=== PATIENT | female | born 1990 | race Caucasian/White ===

== ENCOUNTER 2020-03-06 14:50 | Emergency (ER) | payer OTHER, SELFPAY ==
[2020-03-06 15:01] VITALS: BP 147/93; PULSE 91; RESP 16; TEMP 36.7; O2SAT 100; BMI 42.3
--- NOTE | 2020-03-06 15:21 | ED.FEMALEGU ---
HPI - Female Genitourinary General Chief complaint: Urogenital-Female Stated complaint: UTI? Time Seen by Provider: 03/06/20 15:10 Source: patient Mode of arrival: ambulatory Limitations: no limitations History of Present Illness HPI Narrative: For the last week the patient has had intermittent bladder spasms. Last evening she started to feel well and had a low-grade fever with a max temp of 101 degrees before bed. This morning when she woke up she noticed foul-smelling urine, urinary urgency and some discomfort. No vaginal discharge, back pain, abdominal pain, vomiting. MD elicited complaint: UTI Location of symptoms: urethra Severity: mild Female Urogenital Radiation: Non-Radiating Quality of pain: burning Consistency: other (with urinating ) Vaginal discharge: none Vaginal bleeding: none Urinary symptoms: Urgency and Foul Smelling Urine Exacerbating factors: urination Associated symptoms: denies other symptoms Treatment prior to arrival: none Sexual activity: Yes Patient : No Related Data Previous Rx's Medication Instructions Recorded nitrofurantoin monohyd/m-cryst 100 mg PO Q12H 5 Days #10 cap 03/06/20 [Macrobid] phenazopyridine [Pyridium] 200 mg PO TID PRN #20 tab 03/06/20 Allergies Allergy/AdvReac Type Severity Reaction Status Date / Time No Known Allergies Allergy Unverified 01/28/20 17:48 Review of Systems Review of Systems: Yes all other systems are reviewed and are negative Constitutional: Constitutional: Reports no additional constitutional complaints, Denies body ache(s), Denies chills, Denies fever(s), Denies headache(s) and Denies weakness Eyes: Eyes: Reports no additional eye complaints and Denies change in vision ENT: Reports system reviewed and no additional complaints, except as documented, Denies dizziness, Denies headache(s), Denies nasal congestion, Denies nasal discharge and Denies neck pain Cardiovascular: Cardiovascular: Reports no additional cardiovascular complaints, Denies chest pain, Denies leg edema and Denies dyspnea Respiratory: Respiratory: Reports no additional respiratory complaints, Denies cough and Denies dyspnea Gastrointestinal: Gastrointestinal: Reports no additional gastrointestinal complaints, Denies abdominal pain, Denies diarrhea, Denies nausea and Denies vomiting Genitourinary: Genitourinary: Reports no additional female genitourinary complaints, Denies urinary frequency, Denies difficulty voiding, Denies post void dribbling, Denies dysuria, Denies pelvic pain, Denies flank pain, Denies urinary incontinence, Reports urinary urgency and Denies vaginal discharge Musculoskeletal: Musculoskeletal: Reports no additional musculoskeletal complaints, Denies back pain, Denies arthralgias, Denies joint swelling, Denies neck pain, Denies numbness and Denies tingling Integumentary/Breasts: Skin/Breast: Reports system reviewed and no additional complaints, except as docu and Denies rash Neurologic: Reports system reviewed and no additional complaints, except as documented, Denies Abnormal speech present, Denies dizziness, Denies headache(s), Denies numbness, Denies tingling and Denies weakness PMFSH Past Medical History Attestation statement: The following information was validated with the patient. Source: old records reviewed, obtained from family and nursing notes reviewed Medical History No known health problems Social History Social History Alcohol intake: never Smoked in Last 30 Days: No Use of substances other than those prescribed or required for medical reasons: No Advance Directives: No Advance Directives Information Provided: Yes Physical Exam Vital Signs: Vital Signs: Vital Signs Temp Pulse Resp BP Pulse Ox 03/06/20 15:01 98.1 F 91 16 147/93 H 100 Body Mass Index 42.3 Const: General: cooperative, healthy appearing, comfortable and no acute distress Orientation/consciousness: patient oriented x3 Limitations: no limitations HENMT: Head: Yes normal to inspection Ears: hearing grossly normal bilaterally General nose exam: Normal external nose present Face and sinus: Yes normal facial exam Mouth: Normal oral and palatal mucosa present Throat: Yes posterior oropharynx normal Eyes: General: appearance normal, both eyes and all related structures Pupils: Equal, round and reactive pupils present Neck: Neck: Yes normal visual inspection Chest: Chest palpation & inspection: normal inspection of the chest Resp: Effort & Inspection: normal respiratory effort Auscultation: clear to auscultation bilaterally Cardio: Rate: regular rate Rhythm: regular rhythm Peripheral pulses: Peripheral pulses 2+ throughout GI: Inspection: Yes normal to inspection Palpation (GI): Soft to palpation and nontender Auscultation: normal bowel sounds : General: Yes no CVA tenderness Back/Spine/Pelvis: Back: no CVA tenderness Thoracic/Lumbar Spine: thoracic and lumbar spine normal to inspection Skin: General skin exam: no rashes or lesions noted Neuro: General: patient oriented x3, no focal motor deficits and normal sensation to monofilament Cranial nerves: Yes Equal, round and reactive pupils present Cognition (Neuro): normal cognition Speech: No Abnormal speech present Gait exam (Neuro): Normal gait present Motor exam (neuro): 5/5 motor strength present throughout Extrem: General: Yes normal to inspection Course Course Course Narrative: UTI symptoms with no AP/flank pain or systemic s/s infection. Will treat with oral antibiotics, symptomatic relief. Reviewed worrisome signs and symptoms and when to return to the emergency department. Comfortable discharge home. MDM - Female Genitourinary Lab Data Labs: Lab Results 03/06/20 Range/Units 15:21 Urine Color YELLOW Urine Appearance CLEAR Urine pH 6.0 (5.0-8.0) Ur Specific [place] >= 1.030 H (1.005-1.025) Urine Protein NEG (NEG-TRACE) MG/DL Urine Glucose (UA) NEG (NEG) MG/DL Urine Ketones NEG (NEG) MG/DL Urine Blood 1+ H (NEG) Urine Nitrite NEG (NEG) Ur Leukocyte Esterase 1+ H (NEG) Urine RBC 1-4 (0) /HPF Urine WBC 30-49 H (0-4) /HPF Ur Squamous Epith Cells 3+ /LPF Urine Bacteria 2+ /LPF Urine Test NEGATIVE (NEGATIVE) Discharge Plan Discharge Clinical Impression: Urinary tract infection Qualifiers: Urinary tract infection type: acute cystitis Hematuria presence: without hematuria Qualified Code(s): N30.00 - Acute cystitis without hematuria Patient Disposition: Home, Self-Care Instructions: Urinary Tract Infection in Women (ED) Prescriptions: New nitrofurantoin monohyd/m-cryst [Macrobid] 100 mg capsule 100 mg PO Q12H 5 Days Qty: 10 RF: 0 phenazopyridine [Pyridium] 100 mg tablet 200 mg PO TID PRN (Reason: pain) Qty: 20 RF: 0 Referrals: Inés Norwood MD [Primary Care Provider] - 2 days Stand Alone Forms: Work/School Release Interventions: ED Discharge Assessment Last Done: 03/06/20 15:58 Discharge Date/Time: 03/06/20 16:02
[2020-03-06 15:29] LABS: Glucose Urine UA NEG (NEG); Leukocyte Esterase Urine 1+ (NEG); Nitrite Urine NEG (NEG); Specific Gravity - Urine >= 1.030 (1.005-1.025); Urine Blood 1+ (NEG); Urine Ketones NEG (NEG); Urine Protein NEG (NEG-TRACE)
[2020-03-06 15:31] LABS: Appearance Urine CLEAR; Color Urine YELLOW
[2020-03-06 15:33] LABS: UPreg QC Valid YES; Urine Pregnancy NEGATIVE (NEGATIVE)
[2020-03-06 15:42] LABS: Bacteria Urine 2+ /LPF; Squamous Epithelial Cell Urine 3+ /LPF; WBC Urine 30-49 /HPF (0-4)
== END 2020-03-06 16:02 | disposition home or self-care (01) ==
PROVIDERS: Nurse Practitioner Family; Emergency Provider Emergency Medicine; PCP Internal Medicine
DX: N30.00 Acute cystitis without hematuria (principal); R50.9 Fever, unspecified; Z79.899 Other long term (current) drug therapy
CPT/HCPCS: 81001; 81025; 87086; 99283; 99284

== ENCOUNTER 2020-03-09 19:22 | Emergency (ER) | payer OTHER, SELFPAY ==
[2020-03-09 19:23] VITALS: BP 172/92; PULSE 123; RESP 24; TEMP 37.6; O2SAT 100; BMI 42.3
--- NOTE | 2020-03-09 20:17 | ED.FEMALEGU ---
HPI - Female Genitourinary General Chief complaint: Urogenital-Female Stated complaint: flank pain Time Seen by Provider: 03/09/20 20:02 Source: patient Mode of arrival: ambulatory Limitations: no limitations History of Present Illness HPI Narrative: 29yoF c No Sig PMHx who is currently being treated for a UTI since 03/06/2020 was seen here and placed on Macrobid had persistent pain no symptomatic relief therefore followed up with her primary care provider and ended up seen a nurse practitioner that was on that day and she reports she did not take a urine just changed her antibiotics to Cipro and she has already taken 3 doses and no symptomatic relief and she developed a fever prior to arrival. Reports suprapubic abdominal pain, dysuria, right mid to lower back pain. Reports she had an odor on Saturday although has not had that water since. Denies any other additional complaints or concerns at this time. Related Data Home Medications Medication Instructions Recorded Confirmed buprenorphine 8 mg-naloxone 2 mg film SUBLINGUAL 03/08/20 sublingual film flu vacc [id number] 6mos up(PF) ml IM 03/08/20 methylphenidate HCl 20 mg tablet 20 mg PO TID 03/08/20 Previous Rx's Medication Instructions Recorded nitrofurantoin monohyd/m-cryst 100 mg PO Q12H 5 Days #10 cap 03/06/20 [Macrobid] phenazopyridine [Pyridium] 200 mg PO TID PRN #20 tab 03/06/20 ciprofloxacin HCl 500 mg tablet 500 mg PO BID 7 Days #14 tab 03/08/20 cyclobenzaprine 10 mg PO TID PRN #10 tab 03/10/20 naproxen 500 mg PO BID PRN #10 tab 03/10/20 Allergies Allergy/AdvReac Type Severity Reaction Status Date / Time No Known Allergies Allergy Unverified 01/28/20 17:48 Review of Systems Review of Systems: Constitutional : + Fever, No Chills Cardiovascular : No Chest Pain, No SOB Respiratory : No Cough, No Sputum Gastrointestinal : No Nausea, No Vomiting, No Diarrhea, + abdominal Pain, No Hematochezia, No Melena Genitourinary : no irregular bleeding, + Dysuria, No Urinary Frequency, No Hematuria, No Urinary Incontinence, No Urgency, No Flank Pain, No Urinary Flow Changes, No Hesitancy Musculoskeletal : No joint pain, No Myalgias, No Joint Swelling Skin : No Skin Lesions, No rash Neuro : No Weakness, No Headache Heme/Lymph: No Lymphadenopathy Yes all other systems are reviewed and are negative [facility] Past Medical History Attestation statement: The following information was validated with the patient. Medical History No known health problems Social History Social History Alcohol intake: never Advance Directives: No Advance Directives Information Provided: Yes Physical Exam Vital Signs: Vital Signs: Vital Signs Temp Pulse Resp BP Pulse Ox 03/09/20 20:46 98.1 F 102 H 18 123/82 100 03/09/20 19:23 99.6 F 123 H 24 H 172/92 H 100 Body Mass Index 42.3 vital signs have been reviewed as normal and appeared to be correct. Blood pressure normal. Heart rate normal. Respiration rate normal. Temperature normal. Oxygen saturation normal. Appearance: Alert. Oriented X3. No acute distress. Head: Normal external exam. Normocephalic. Atraumatic. No Brock signs noted. No raccoon eyes noted Eyes: PERRLA. EOMI. Conjunctiva and sclera normal. Eyelids normal. ENT: EAC normal. TM's Normal. Pharynx normal. Uvula midline. Moist mucous membranes. No trismus noted. No drooling noted. No muffled voice noted. Neck: Normal inspection. Neck supple. FROM. No adenopathy. Thyroid Normal. No meningeal signs. No neck mass noted. CVS: Normal heart rate and rhythm. Heart sound normal. No murmurs noted. Pulses normal throughout. Respiratory: No respiratory distress. Painless inspiration. Breath sounds normal. No wheezes/rales/rhonchi noted. Chest nontender. No accessory muscle usage noted or decreased air movement noted. Abdomen: Soft and nontender. Bowel sounds normal in all 4 quadrants. No distention noted. No organomegaly noted. No visible injury noted. Back: +RCVA tenderness. No Left CVA tenderness. Full range of motion noted. Skin: Skin warm and dry. Normal skin color. Normal skin turgor. No rashes/lesions/lacerations noted. Extremities: No lower extremity edema. Extremities exhibit normal range of motion. Extremities nontender. Neuro: Oriented X 3. No motor deficit. No sensory deficit. Reflexes normal. Course Course Course Narrative: 20:05PM - 29yoF c No Sig PMHx who is currently being treated for a UTI since 03/06/2020 was seen here and placed on Macrobid had persistent pain no symptomatic relief therefore followed up with her primary care provider and ended up seen a nurse practitioner that was on that day and she reports she did not take a urine just changed her antibiotics to Cipro and she has already taken 3 doses and no symptomatic relief and she developed a fever prior to arrival. Reports suprapubic abdominal pain, dysuria, right mid to lower back pain. Reports she had an odor on Saturday although has not had that water since. Denies any other additional complaints or concerns at this time. - Concern for Pyelonephritis/Sepsis - Plan: Labs including lactic acid and blood cultures, CT scan of abd/pelvis c IV contrast. Provide IV fluids, 975 mg of Tylenol, 30 mg of Toradol, 750 mg of Levaquin for possible UTI/pyelo/sepsis. Then re-evaluate. Reevaluation(s) Reevaluation #1: Patient's labs were just drawn. Therefore still pending at this time. UA negative for any signs of UTI and UHCG negative. Will re-evaluate. Time: 22:01 Reevaluation #2: [place] [id number]. Still awaiting the patient's basic metabolic panel, magnesium and liver panel. Lactic acid 1.0. I reordered the liver panel, magnesium and basic metabolic panel. Once that is resulted patient can go to CT scan. Will re-evaluate. Time: 22:41 Reevaluation #3: Patient's basic metabolic panel, magnesium and liver panel returned at this time and all within normal limits. Now waiting CT scan of abdomen and pelvis with IV contrast. Will re-evaluate. Time: 01:08 Additional Reevaluation(s): CT scan abdomen and pelvis within normal limits no acute processes noted. Will DC home with symptomatic treatment along with instructions to return if any new or worsening symptoms to follow-up with primary care provider. Patient understands agrees the plan. MDM - Female Genitourinary Lab Data Result diagrams: 03/09/20 21:49 03/10/20 00:12 Labs: Lab Results 03/09/20 03/09/20 03/09/20 Range/Units 20:50 21:49 21:49 WBC 14.1 H (4.8-10.8) X10*3/uL RBC 4.54 (4.20-5.50) X10*6/uL Hgb 12.7 (12.0-16.0) g/dl Hct 38.0 (37-47) % MCV 83.7 (80-98) fL MCH 28.0 (27.0-33.0) pg MCHC 33.4 (31.0-35.0) g/dl RDW 12.2 (11.0-16.0) % Plt Count 290 (160-400) X10*3/uL MPV 8.5 L (9.4-12.3) fL Immature Gran % (Auto) 0.3 (0.0-0.4) % Neut % (Auto) 84.2 H (45-73) % Lymph % (Auto) 10.6 L (20-40) % [place] % (Auto) 3.8 (2-11) % Eos % (Auto) 0.8 (0-4) % Baso % (Auto) 0.3 (0-2) % Lymph # (Auto) 1.5 (1.2-4.9) X10*3/uL [place] # (Auto) 0.5 (0.1-1.2) X10*3/uL Eos # (Auto) 0.1 (0.0-0.4) X10*3/uL Baso # (Auto) 0.0 (0.0-0.2) X10*3/uL Abs Immat Gran (auto) 0.04 H (0.00-0.03) X10*3/uL Absolute Neuts (auto) 11.9 H (2.0-8.3) X10*3/uL Absolute Nucleated RBC 0.000 (0.0-0.012) X10*3/uL Nucleated RBC % (auto) 0.0 (0.0-0.2) /100WBC PT 13.4 H (10.8-13.0) SEC INR 1.1 (0.9-1.1) Sodium Potassium Chloride Carbon Dioxide Anion Gap BUN Creatinine Estim Creat Clear Calc Estimated GFR Random Glucose Lactic Acid (0.5-2.0) mmol/L Calcium Magnesium Total Bilirubin Direct Bilirubin AST ALT Alkaline Phosphatase Total Protein Albumin Urine Color STRAW Urine Appearance CLEAR Urine pH 5.5 (5.0-8.0) Ur Specific [place] <= 1.005 (1.005-1.025) Urine Protein NEG (NEG-TRACE) MG/DL Urine Glucose (UA) NEG (NEG) MG/DL Urine Ketones NEG (NEG) MG/DL Urine Blood NEG (NEG) Urine Nitrite NEG (NEG) Ur Leukocyte Esterase NEG (NEG) Urine Test NEGATIVE (NEGATIVE) 03/09/20 03/09/20 03/10/20 Range/Units 21:49 21:49 00:12 WBC (4.8-10.8) X10*3/uL RBC (4.20-5.50) X10*6/uL Hgb (12.0-16.0) g/dl Hct (37-47) % MCV (80-98) fL MCH (27.0-33.0) pg MCHC (31.0-35.0) g/dl RDW (11.0-16.0) % Plt Count (160-400) X10*3/uL MPV (9.4-12.3) fL Immature Gran % (Auto) (0.0-0.4) % Neut % (Auto) (45-73) % Lymph % (Auto) (20-40) % [place] % (Auto) (2-11) % Eos % (Auto) (0-4) % Baso % (Auto) (0-2) % Lymph # (Auto) (1.2-4.9) X10*3/uL [place] # (Auto) (0.1-1.2) X10*3/uL Eos # (Auto) (0.0-0.4) X10*3/uL Baso # (Auto) (0.0-0.2) X10*3/uL Abs Immat Gran (auto) (0.00-0.03) X10*3/uL Absolute Neuts (auto) (2.0-8.3) X10*3/uL Absolute Nucleated RBC (0.0-0.012) X10*3/uL Nucleated RBC % (auto) (0.0-0.2) /100WBC PT (10.8-13.0) SEC INR (0.9-1.1) Sodium Cancelled 138 Potassium Cancelled 4.0 Chloride Cancelled 108 Carbon Dioxide Cancelled 21 L Anion Gap Cancelled 13 BUN Cancelled 13 Creatinine Cancelled 0.69 Estim Creat Clear Calc Cancelled 160.2 Estimated GFR Cancelled > 60 Random Glucose Cancelled 94 Lactic Acid 1.0 (0.5-2.0) mmol/L Calcium Cancelled 8.2 L Magnesium Cancelled 2.3 Total Bilirubin Cancelled Direct Bilirubin Cancelled AST Cancelled ALT Cancelled Alkaline Phosphatase Cancelled Total Protein Cancelled Albumin Cancelled Urine Color Urine Appearance Urine pH (5.0-8.0) Ur Specific [place] (1.005-1.025) Urine Protein (NEG-TRACE) MG/DL Urine Glucose (UA) (NEG) MG/DL Urine Ketones (NEG) MG/DL Urine Blood (NEG) Urine Nitrite (NEG) Ur Leukocyte Esterase (NEG) Urine Test (NEGATIVE) 03/10/20 Range/Units 00:12 WBC (4.8-10.8) X10*3/uL RBC (4.20-5.50) X10*6/uL Hgb (12.0-16.0) g/dl Hct (37-47) % MCV (80-98) fL MCH (27.0-33.0) pg MCHC (31.0-35.0) g/dl RDW (11.0-16.0) % Plt Count (160-400) X10*3/uL MPV (9.4-12.3) fL Immature Gran % (Auto) (0.0-0.4) % Neut % (Auto) (45-73) % Lymph % (Auto) (20-40) % [place] % (Auto) (2-11) % Eos % (Auto) (0-4) % Baso % (Auto) (0-2) % Lymph # (Auto) (1.2-4.9) X10*3/uL [place] # (Auto) (0.1-1.2) X10*3/uL Eos # (Auto) (0.0-0.4) X10*3/uL Baso # (Auto) (0.0-0.2) X10*3/uL Abs Immat Gran (auto) (0.00-0.03) X10*3/uL Absolute Neuts (auto) (2.0-8.3) X10*3/uL Absolute Nucleated RBC (0.0-0.012) X10*3/uL Nucleated RBC % (auto) (0.0-0.2) /100WBC PT (10.8-13.0) SEC INR (0.9-1.1) Sodium 138 Potassium 4.0 Chloride 108 Carbon Dioxide 22 Anion Gap 12 BUN 13 Creatinine 0.69 Estim Creat Clear Calc 160.2 Estimated GFR > 60 Random Glucose 93 Lactic Acid (0.5-2.0) mmol/L Calcium 8.3 L Magnesium 2.2 Total Bilirubin 0.6 Direct Bilirubin < 0.2 AST 14 ALT 13 Alkaline Phosphatase 53 Total Protein 7.0 Albumin 4.1 Urine Color Urine Appearance Urine pH (5.0-8.0) Ur Specific [place] (1.005-1.025) Urine Protein (NEG-TRACE) MG/DL Urine Glucose (UA) (NEG) MG/DL Urine Ketones (NEG) MG/DL Urine Blood (NEG) Urine Nitrite (NEG) Ur Leukocyte Esterase (NEG) Urine Test (NEGATIVE) Discharge Plan Discharge Clinical Impression: Back pain Qualifiers: Back pain location: low back pain Chronicity: acute Back pain laterality: right Sciatica presence: without sciatica Qualified Code(s): M54.5 - Low back pain Patient Disposition: Home, Self-Care Instructions: Back Pain (ED) Prescriptions: New cyclobenzaprine 10 mg tablet 10 mg PO TID PRN (Reason: muscle spasm) Qty: 10 RF: 0 naproxen 500 mg tablet 500 mg PO BID PRN (Reason: pain) Qty: 10 RF: 0 No Action nitrofurantoin monohyd/m-cryst [Macrobid] 100 mg capsule 100 mg PO Q12H 5 Days Qty: 10 RF: 0 phenazopyridine [Pyridium] 100 mg tablet 200 mg PO TID PRN (Reason: pain) Qty: 20 RF: 0 buprenorphine-naloxone 8-2 mg film sublingual RF: 0 methylphenidate HCl 20 mg tablet 20 mg PO TID RF: 0 Fluzone Quad (PF) 60 mcg (15 mcg x 4)/0.5 mL syringe IM RF: 0 ciprofloxacin HCl 500 mg tablet 500 mg PO BID 7 Days Qty: 14 RF: 0 Referrals: Inés Norwood MD [Primary Care Provider] - 2 days Stand Alone Forms: Work/School Release Print Language: Latvian
[2020-03-09 20:46] VITALS: BP 123/82; PULSE 102; RESP 18; TEMP 36.7; O2SAT 100
[2020-03-09 20:56] LABS: Glucose Urine UA NEG (NEG); Leukocyte Esterase Urine NEG (NEG); Nitrite Urine NEG (NEG); PH 5.5 (5.0-8.0); Specific Gravity - Urine <= 1.005 (1.005-1.025); Urine Blood NEG (NEG); Urine Ketones NEG (NEG); Urine Protein NEG (NEG-TRACE)
[2020-03-09 20:57] LABS: Appearance Urine CLEAR; Color Urine STRAW
[2020-03-09 20:58] LABS: UPreg QC Valid YES; Urine Pregnancy NEGATIVE (NEGATIVE)
--- NOTE | 2020-03-09 21:42 | PC.NURSE ---
PT ALERT AND DENIES ANY COMPLAINTS AT THIS TIME. PT UP TO RESTROOM WITOUT DIFFICULTY. PT SPEAKING TO FAMILY ON PHONE, KEPPRA INFUSED W/O DIFFICULTY. NS INFUSING, SITE INTACT. PT IN NAD AT THIS TIME.
[2020-03-09 21:57] LABS: MANUAL DIFF FLAG NO
[2020-03-09 22:01] LABS: Basophils Percent Auto 0.3 % (0-2); Eosinophils Absolute Auto 0.1 X10*3/uL (0.0-0.4); Eosinophils Percent Auto 0.8 % (0-4); Hemoglobin 12.7 g/dl (12.0-16.0); Imm Gran Abs Auto 0.04 X10*3/uL (0.00-0.03); Imm Gran Pct Auto 0.3 % (0.0-0.4); Lymphocytes Absolute Auto 1.5 X10*3/uL (1.2-4.9); Lymphocytes Percent Auto 10.6 % (20-40); Mean Corpuscular HGB Conc 33.4 g/dl (31.0-35.0); Mean Corpuscular Volume 83.7 fL (80-98); Mean Platelet Volume 8.5 fL (9.4-12.3); Monocytes Absolute Auto 0.5 X10*3/uL (0.1-1.2); Monocytes Percent Auto 3.8 % (2-11); Neutrophils Absolute Auto 11.9 X10*3/uL (2.0-8.3); Neutrophils Percent Auto 84.2 % (45-73); Platelet Count 290 X10*3/uL (160-400); Red Blood Count 4.54 X10*6/uL (4.20-5.50); Red Cell Distribution Width 12.2 % (11.0-16.0); White Blood Count 14.1 X10*3/uL (4.8-10.8)
[2020-03-09] MEDS: 0.9 % Sodium Chloride 1,000 ML 999 ML IVCONT (22:02)
[2020-03-09 22:07] LABS: INTERNATIONAL NORM RATIO 1.1 (0.9-1.1); Prothrombin Time 13.4 SEC (10.8-13.0)
[2020-03-09] MEDS: levoFLOXacin/D5W 750 MG/150 ML PIGGYBACK 100 MG IV (22:16)
[2020-03-10 00:57] LABS: Alanine Aminotransferase 13 U/L (0-31); Albumin Level 4.1 g/dL (3.5-5.0); Alkaline Phosphatase 53 U/L (39-117); Anion Gap 12 (12-20); Aspartate Amino Transferase 14 U/L (5-31); Bilirubin Direct < 0.2 mg/dL (0.0-0.5); Bilirubin Total 0.6 mg/dL (0.0-1.0); Blood Urea Nitrogen 13 mg/dL (9-16); Calcium 8.3 mg/dL (8.4-10.2); Carbon Dioxide 22 mmol/L (22-29); Chloride 108 mmol/L (96-108); Creatinine Clr Calc Pharmacy 160.2; Estimated Glomerular Filt Rate > 60; Glucose Random 93 mg/dL (60-115); Magnesium 2.2 mg/dL (1.6-2.6); Sodium 138 mmol/L (135-145)
[2020-03-10 00:59] LABS: Anion Gap 13 (12-20); Blood Urea Nitrogen 13 mg/dL (9-16); Calcium 8.2 mg/dL (8.4-10.2); Carbon Dioxide 21 mmol/L (22-29); Chloride 108 mmol/L (96-108); Creatinine Clr Calc Pharmacy 160.2; Estimated Glomerular Filt Rate > 60; Glucose Random 94 mg/dL (60-115); Magnesium 2.3 mg/dL (1.6-2.6); Sodium 138 mmol/L (135-145)
--- NOTE | 2020-03-10 01:23 | CT_ITS ---
EXAMINATION: CT ABDOMEN AND PELVIS WITHOUT CONTRAST CLINICAL INFORMATION: Right abdominal pain. Back pain. Question stones. COMPARISON: None TECHNIQUE: Multidetector volumetric imaging was performed from the superior aspect of the liver through the pubic symphysis. Sagittal and coronal reformatted images were obtained on the technologist's workstation. This CT examination was performed using dose optimization techniques as appropriate, variously including the following: *Automated exposure control *Adjustment of mA and/or kV according to patient size (this includes techniques or standardized protocols for targeted exams where dose is matched to indication/reason for exam; i.e. extremities or head) *Use of iterative reconstruction technique DLP: 1106 mGy-cm FINDINGS: LUNG BASES: The visualized lung bases are unremarkable. LIVER, GALLBLADDER, AND BILIARY TREE: The liver is normal in size, shape, and attenuation. No focal hepatic lesion or biliary ductal dilatation is present. The gallbladder is unremarkable with no evidence of radiopaque gallstones, gallbladder wall thickening, or obvious pericholecystic inflammatory changes. PANCREAS: Unremarkable. SPLEEN: Unremarkable. ADRENAL GLANDS: Unremarkable. KIDNEYS AND URETERS: The kidneys are normal in size, shape, and attenuation. No hydronephrosis, hydroureter, or calculi seen. No perinephric stranding. BLADDER: Unremarkable. GASTROINTESTINAL TRACT: The stomach is unremarkable. Normal caliber small bowel. There is no obstruction. No colonic wall thickening or inflammatory change. Normal appendix. ABDOMINAL WALL: No significant hernia is appreciated. LYMPH NODES: Normal. VASCULAR: Unremarkable. PELVIC VISCERA: IUD in place in the uterus. Anteverted uterus. No adnexal mass. OSSEOUS STRUCTURES: No acute or suspicious osseous abnormality. CT/CT abdomen pelvis wo con IMPRESSION: No acute finding of the abdomen or pelvis. No hydronephrosis or nephrolithiasis.
== END 2020-03-10 02:15 | disposition home or self-care (01) ==
PROVIDERS: Physician Assistant Medical; Emergency Provider Internal Medicine; PCP Internal Medicine
DX: R10.9 Unspecified abdominal pain (principal); M54.5 Low back pain; Z79.899 Other long term (current) drug therapy
CPT/HCPCS: 36415; 74176; 80048; 80076; 81003; 81025; 83605; 83735; 85025; 85610; 87040; 96365; 96366; 96375; 99284; J1956

== ENCOUNTER 2020-03-28 10:31 | Outpatient (REF) | payer OTHER, SELFPAY ==
[2020-03-28 15:56] LABS: Influenza A PCR NEGATIVE (Negative); Influenza B PCR NEGATIVE (Negative); Resp Syncy Virus RNA Qual PCR NEGATIVE (Negative); SARS COV2 PCR INHOUSE NEGATIVE (Negative)
== END 2020-03-28 10:32 | disposition home or self-care (01) ==
LOC: HO.LAB 10:31
PROVIDERS: Visit Provider Nurse Practitioner Family
DX: J02.9 Acute pharyngitis, unspecified (principal); Z20.828 Contact with and (suspected) exposure to other viral communicable diseases
CPT/HCPCS: 0241U; 87071; 87880

== ENCOUNTER 2020-03-31 08:55 | Outpatient (REF) | payer OTHER, SELFPAY ==
[2020-03-31 11:21] LABS: MANUAL DIFF FLAG NO
[2020-03-31 11:32] LABS: Basophils Percent Auto 0.4 % (0-2); Eosinophils Absolute Auto 0.2 X10*3/uL (0.0-0.4); Hematocrit 36.4 % (37-47); Imm Gran Abs Auto 0.03 X10*3/uL (0.00-0.03); Imm Gran Pct Auto 0.4 % (0.0-0.4); Lymphocytes Absolute Auto 1.7 X10*3/uL (1.2-4.9); Lymphocytes Percent Auto 21.3 % (20-40); Mean Corpuscular Hemoglobin 27.9 pg (27.0-33.0); Mean Corpuscular Volume 84.7 fL (80-98); Mean Platelet Volume 8.9 fL (9.4-12.3); Monocytes Absolute Auto 0.4 X10*3/uL (0.1-1.2); Monocytes Percent Auto 4.8 % (2-11); Neutrophils Absolute Auto 5.5 X10*3/uL (2.0-8.3); Neutrophils Percent Auto 70.1 % (45-73); Platelet Count 262 X10*3/uL (160-400); Red Cell Distribution Width 12.3 % (11.0-16.0); White Blood Count 7.8 X10*3/uL (4.8-10.8)
[2020-03-31 12:39] LABS: Alanine Aminotransferase 12 U/L (0-31); Alkaline Phosphatase 55 U/L (39-117); Anion Gap 12 (12-20); Aspartate Amino Transferase 12 U/L (5-31); Bilirubin Total 0.4 mg/dL (0.0-1.0); Blood Urea Nitrogen 11 mg/dL (9-16); Carbon Dioxide 28 mmol/L (22-29); Chloride 104 mmol/L (96-108); Estimated Glomerular Filt Rate > 60; Glucose Fasting 87 mg/dL (60-99); Potassium 4.3 mmol/l (3.3-5.1); Sodium 140 mmol/L (135-145)
[2020-03-31 12:40] LABS: TSH reflex Free T4 2.12 mIU/mL (0.32-4.0)
== END 2020-03-31 08:56 | disposition home or self-care (01) ==
LOC: HO.HMGCLDS 08:55
PROVIDERS: PCP Internal Medicine; Visit Provider Nurse Practitioner Family
DX: J02.9 Acute pharyngitis, unspecified (principal); M54.2 Cervicalgia
CPT/HCPCS: 36415; 80053; 84443; 85025

== ENCOUNTER 2020-04-04 11:14 | Outpatient (REF) | payer OTHER, SELFPAY ==
--- NOTE | 2020-04-04 11:20 | US_ITS ---
EXAMINATION: US THYROID CLINICAL INFORMATION: Acute pharyngitis, unspecified. Painful lump posterior neck. COMPARISON: None. TECHNIQUE: Linear transducer olivas-scale and color Doppler examination with attention to the region of the thyroid. FINDINGS: SIZE: Measurements of the thyroid lobes and nodules are given in sagittal, anteroposterior and transverse dimensions respectively. Right Thyroid Lobe: 5.2 x 1.8 x 1.7 cm, volume 8.3 mL. Parenchyma: The gland echotexture is heterogeneous. Thyroid vascularity is increased. Left Thyroid Lobe: 5.0 x 1.8 x 1.6 cm, volume 7.5 mL. Parenchyma: The gland echotexture is heterogeneous. Thyroid vascularity is increased. Isthmus: 0.5 cm in maximum AP dimension. RIGHT THYROID LOBE: No nodules. ISTHMUS: No nodules. LEFT THYROID LOBE: No nodules. NODES: Three lymph nodes seen in anterior right neck. They measure 0.5 x 2.1 x 1.0, 1.6 x 2.1 x 0.6 in the upper neck level 2, and 0.9 x 1.7 x 0.8 cm lower right neck level 4/7. There is a solitary lymph node in anterior left upper neck level 2, measuring 2.3 x 2.9 x 1.1 cm. Painful lumps along the posterior nape of the neck left of midline are lymph nodes. Lymph node measures 1.2 x 0.2 x 0.7 cm and 1.3 x 0.3 x 0.9 cm. US/US thyroid IMPRESSION: Two painful lumps posterior neck left of midline measures or 2 small lymph nodes, as described above. There are small lymph nodes in anterior right and left neck as described above, the largest measuring 2.1 cm level 2 ,right neck and 2.9 cm level 2, left neck. Heterogeneous thyroid gland without any nodules.
== END 2020-04-04 11:15 | disposition home or self-care (01) ==
LOC: HO.HMGCX 11:14
PROVIDERS: PCP Nurse Practitioner Family; Visit Provider Nurse Practitioner Family
DX: M54.2 Cervicalgia (principal); J02.9 Acute pharyngitis, unspecified
CPT/HCPCS: 76536

== ENCOUNTER 2020-04-14 08:50 | Outpatient (REF) | payer OTHER, SELFPAY ==
--- NOTE | 2020-04-14 08:55 | XR_ITS ---
EXAMINATION: XR CERVICAL SPINE CLINICAL INFORMATION: Cervicalgia. COMPARISON: None TECHNIQUE: Frontal, odontoid and lateral views of the cervical spine were obtained. FINDINGS: There are no prevertebral soft tissue or bony abnormalities demonstrated. No compression fractures or subluxations are identified. Alignment is maintained at the atlanto-axial articulation. The disc spaces are preserved. No endplate changes are seen. The prevertebral soft tissues are normal. The foramina are patent. XR/XR cervical spine 3V IMPRESSION: Unremarkable examination.
== END 2020-04-14 08:51 | disposition home or self-care (01) ==
LOC: HO.HMGCX 08:50
PROVIDERS: PCP Internal Medicine; Visit Provider Nurse Practitioner Family
DX: M54.2 Cervicalgia (principal)
CPT/HCPCS: 72040

== ENCOUNTER 2020-09-19 09:19 | Outpatient (REF) | payer OTHER, SELFPAY ==
[2020-09-19 11:24] LABS: MANUAL DIFF FLAG NO
[2020-09-19 11:44] LABS: Basophils Percent Auto 0.4 % (0-2); Eosinophils Absolute Auto 0.3 X10*3/uL (0.0-0.4); Eosinophils Percent Auto 3.5 % (0-4); Hematocrit 37.2 % (37-47); Imm Gran Abs Auto 0.02 X10*3/uL (0.00-0.03); Imm Gran Pct Auto 0.3 % (0.0-0.4); Lymphocytes Absolute Auto 1.8 X10*3/uL (1.2-4.9); Mean Corpuscular HGB Conc 32.3 g/dl (31.0-35.0); Mean Corpuscular Hemoglobin 27.8 pg (27.0-33.0); Mean Corpuscular Volume 86.1 fL (80-98); Mean Platelet Volume 8.7 fL (9.4-12.3); Monocytes Absolute Auto 0.4 X10*3/uL (0.1-1.2); Monocytes Percent Auto 5.1 % (2-11); Neutrophils Percent Auto 66.7 % (45-73); Platelet Count 261 X10*3/uL (160-400); Red Blood Count 4.32 X10*6/uL (4.20-5.50); Red Cell Distribution Width 12.2 % (11.0-16.0); White Blood Count 7.5 X10*3/uL (4.8-10.8)
[2020-09-19 11:56] LABS: Alanine Aminotransferase 14 U/L (0-31); Alkaline Phosphatase 69 U/L (39-117); Anion Gap 11 (12-20); Aspartate Amino Transferase 14 U/L (5-31); Bilirubin Total 0.6 mg/dL (0.0-1.0); Blood Urea Nitrogen 16 mg/dL (9-16); Calcium 9.2 mg/dL (8.4-10.2); Carbon Dioxide 28 mmol/L (22-29); Chloride 105 mmol/L (96-108); Cholesterol 145 mg/dL; Estimated Glomerular Filt Rate > 60; Glucose Fasting 69 mg/dL (60-99); HDL Cholesterol 56 mg/dL; LDL Cholesterol Calculated 80 mg/dl; Potassium 4.3 mmol/L (3.3-5.1); Sodium 140 mmol/L (135-145); Total Protein 6.9 g/dL (6.5-8.0); Triglycerides 49 mg/dL
[2020-09-19 12:20] LABS: TSH reflex Free T4 2.27 uIU/mL (0.32-4.0)
== END 2020-09-19 09:20 | disposition home or self-care (01) ==
LOC: HO.HMGCLDS 09:19
PROVIDERS: PCP Nurse Practitioner Family; Visit Provider Nurse Practitioner Family
DX: Z00.00 Encounter for general adult medical examination without abnormal findings (principal)
CPT/HCPCS: 36415; 80053; 80061; 84443; 85025

== ENCOUNTER 2020-09-26 09:35 | Outpatient (REF) | payer OTHER, SELFPAY ==
[2020-09-27 05:48] LABS: CT PCR NOT DETECTED (Not Detect.); NG PCR NOT DETECTED (Not Detect.)
[2020-09-29 10:16] LABS: HPV mRNA E6/E7 rflx Not Detected (Not Detected)
== END 2020-09-26 09:36 | disposition home or self-care (01) ==
LOC: HO.LAB 09:35
PROVIDERS: Visit Provider Advanced Practice Midwife
DX: Z01.419 Encounter for gynecological examination (general) (routine) without abnormal findings (principal); E66.01 Morbid (severe) obesity due to excess calories; Z80.3 Family history of malignant neoplasm of breast; Z68.41 Body mass index [BMI] 40.0-44.9, adult; Z30.432 Encounter for removal of intrauterine contraceptive device; Z79.899 Other long term (current) drug therapy
CPT/HCPCS: 58301; 87491; 87591; 87624; 88142

== ENCOUNTER → 2020-12-08 09:59 | Outpatient (BNVA) | payer OTHER, SELFPAY | PROVIDERS: Visit Provider Advanced Practice Midwife | DX: Z30.430 Encounter for insertion of intrauterine contraceptive device (principal) | CPT/HCPCS: 58300; 81025; 99212; J7300 ==

== ENCOUNTER 2021-08-27 13:11 | Emergency (ER) | payer OTHER, SELFPAY ==
--- NOTE | ~2021-08-27 | US_ITS ---
EXAMINATION: UNILATERAL TRIPLEX SCANNING OF THE RIGHT UPPER EXTREMITY CLINICAL INFORMATION: Right upper extremity swelling. COMPARISON: None. TECHNIQUE: Color-flow triplex imaging with spectral analysis and compression Doppler were performed on the right upper extremity. FINDINGS: Respiratory variation, normal compression and augmented flow are noted throughout the upper extremity. The visualized internal jugular vein, subclavian vein, axillary vein, basilic vein, brachial vein, median cubital vein and forearm venous segments show no evidence of deep venous thrombosis. The cephalic vein was not identified. No abnormalities identified in the area of lateral upper arm pain and anterior proximal forearm pain localized by the patient. US/US venous duplex UE RT IMPRESSION: Normal triplex scan without evidence of deep venous thrombosis involving the right upper extremity.
[2021-08-27 13:42] VITALS: BP 145/78; PULSE 94; RESP 18; TEMP 36.5; O2SAT 100; BMI 43.0
--- NOTE | 2021-08-27 15:14 | ED.EXTPRO ---
HPI - Extremity Problem General Chief complaint: Extremity Injury, Upper Stated complaint: r arm wrist pain Time Seen by Provider: 08/27/21 14:28 Source: patient Mode of arrival: ambulatory Limitations: no limitations History of Present Illness HPI Narrative: 30-year-old female who presents for right hand bruising, and right forearm and arm pain after lifting heavy objects at work. She woke up this morning with this pain MD Complaint: extremity pain Onset (ago): hour(s) (3) Pain Consistency: constant Location: right and upper extremity Severity scale (1-10): 6 Quality: aching Relieving factors: immobilization Exacerbating factors: range of motion Associated symptoms: denies other symptoms Related Data Home Medications Medication Instructions Recorded Confirmed buprenorphine 8 mg-naloxone 2 mg film SUBLINGUAL 03/08/20 12/08/20 sublingual film flu vacc [id number] 6mos up(PF) ml IM 03/08/20 12/08/20 methylphenidate HCl 20 mg tablet 20 mg PO TID 03/08/20 12/08/20 levonorgestrel 20 mcg/24 hours (7 INTRAUTERINE 09/26/20 12/08/20 yrs) 52 mg intrauterine device (Mirena) Previous Rx's Medication Instructions Recorded sumatriptan succinate 100 mg tablet 100 mg PO Q2-4H PRN #10 tab 06/08/20 omeprazole 20 mg capsule,delayed 20 mg PO DAILY #30 cap 06/21/20 release ibuprofen 600 mg tablet 600 mg PO Q8H PRN #90 tab 07/29/20 [id number] 3.5 4 drp OTIC (EAR) LEFT Q8H 7 Days 07/29/20 mg-10,000 unit/mL-1 % ear #10 ml drops,susp ibuprofen 600 mg tablet 600 mg PO Q6H PRN #90 tab 12/08/20 nitrofurantoin 100 mg PO Q12H 5 Days #10 cap 04/20/21 monohydrate/macrocrystals 100 mg capsule (Macrobid) phenazopyridine 100 mg tablet 100 mg PO TID PRN 2 Days #6 tab 04/20/21 (Pyridium) methocarbamol 750 mg tablet 750 mg PO Q8H 5 Days #15 tab 08/27/21 Allergies Allergy/AdvReac Type Severity Reaction Status Date / Time ciprofloxacin [From Cipro] Allergy Severe tachycardia, Verified 12/08/20 11:09 sob Sulfa (Sulfonamide Allergy rash, hives Verified 12/08/20 11:09 Antibiotics) Review of Systems Constitutional: Constitutional: Denies body ache(s), Denies chills, Denies fatigue, Denies fever(s), Denies headache(s), Denies malaise and Denies weakness Eyes: Eyes: Denies diplopia ENT: Denies vertigo, Denies dizziness, Denies otalgia, Denies headache(s), Denies mouth pain, Denies post nasal drip, Denies sinus pain, Denies sinus pressure, Denies sore throat and Denies throat swelling Cardiovascular: Cardiovascular: Denies chest pain, Denies syncope, Denies leg edema, Denies lightheadedness, Denies Loss of Consciousness, Denies palpitations and Denies dyspnea Respiratory: Respiratory: Denies chest congestion, Denies cough and Denies dyspnea Gastrointestinal: Gastrointestinal: Denies abdominal pain, Denies hematochezia, Denies constipation, Denies diarrhea and Denies vomiting Musculoskeletal: Musculoskeletal: Denies limited range of motion, Denies muscle weakness, Denies numbness, Reports radiating pain into limb and Denies tingling Neurologic: Denies confusion, Denies vertigo, Denies dizziness, Denies syncope, Denies headache(s), Denies numbness, Denies tingling and Denies weakness Psychiatric: Psychiatric: Denies anxiety, Denies confusion and Denies depression Endocrine: Endocrine: Denies fatigue and Denies palpitations Allergic/Immunologic: Allergic/Immunologic: Denies throat swelling PMF Past Medical History Medical History Anxiety Depression with anxiety Heartburn Lymphadenopathy No known health problems Opioid abuse, in remission Tension headache Vulvar dermatitis Surgical History History of foot surgery Family History Family History Father ADHD Bipolar disorder Mother H/O: manic depressive disorder Anxiety Breast cancer Cervical cancer HTN (hypertension) Brother No problems noted. Sister No problems noted. Maternal Grandfather Stomach cancer Colon cancer High cholesterol Stroke Maternal Grandmother No problems noted. Paternal Grandmother Brain cancer Lung cancer Obese Paternal Grandfather No problems noted. Maternal Uncle Skin cancer Brother No problems noted. Sister No problems noted. Daughter No problems noted. Social History Social History (Updated 12/08/20 @ 11:17 by [facility]) Alcohol intake: never Advance Directives: No Advance Directives Information Provided: Yes Patient : No Gender identity: Female Physical Exam Vital Signs: Vital Signs: Last Vital Signs Temp 97.7 F 08/27/21 13:42 Pulse 94 08/27/21 13:42 Resp 18 08/27/21 13:42 BP 145/78 H 08/27/21 13:42 Pulse Ox 100 08/27/21 13:42 BMI result Body Mass Index 43.0 Const: General: No confusion Nutritional Appearance: well nourished Orientation/consciousness: No confusion Limitations: no limitations Eyes: Conjunctivae: conjunctivae normal Pupils: Equal, round and reactive pupils present EOM: EOMs intact bilaterally Neck: Neck: Yes full ROM, Yes no lymphadenopathy and Yes supple Resp: Effort & Inspection: normal respiratory effort and able to speak in complete sentences Auscultation: clear to auscultation bilaterally, no crackles, no rales, no rhonchi and no wheezes Cardio: Rate: regular rate Rhythm: regular rhythm Heart sounds: S1 normal heart sound present and S2 normal heart sound present GI: Inspection: Yes normal to inspection Palpation (GI): Soft to palpation, nontender, no guarding and not rigid Percussion: Yes normal to percussion Auscultation: normal bowel sounds Skin: General skin exam: no rashes or lesions noted Neuro: General: No confusion Cranial nerves: Yes Equal, round and reactive pupils present Extrem: Other: Patient has tenderness with resistance to wrist flexion up into her forearm, patient states pain radiates up into her right shoulder, there is mild swelling right proximal arm. Right upper extremity: full ROM and normal capillary refill; No no cyanosis and no edema Psych: Appearance: grossly normal Affect: normal affect Attitude: cooperative Thought process: Normal thought process present Course Course Course Narrative: 30-year-old female who is anxious that she may have a blood clot in her right arm. Patient has no risk factors, however she does have palpable pain and swelling proximal right arm. Patient has tenderness with resistance to wrist flexion up into her forearm, patient states pain radiates up into her right shoulder, there is mild swelling right proximal arm. Gave Tylenol, ordered ultrasound. Reevaluation(s) Reevaluation #1: US/US venous duplex UE RT IMPRESSION: Normal triplex scan without evidence of deep venous thrombosis involving the right upper extremity. ? Will prescribe muscle relaxants, alternate Tylenol ibuprofen, call primary care provider for physical therapy appointment. Discharge Plan Discharge Clinical Impression: Overuse injury Patient Disposition: Home, Self-Care Additional Instructions: Please call your primary care provider for follow-up from today's emergency room visit, I would like you to have them prescribe you physical therapy. Please take muscle relaxant as prescribed, though should not make you sleepy, but it may help with your arm pain. Please rest the right arm, and alternate Tylenol and ibuprofen as I have described below for pain controlPlease alternate Tylenol and ibuprofen for pain. Take 1 or the other every 4 hours. For example, at midnight take 1000 mg of Tylenol, then at 4:00 a.m. take 800 mg ibuprofen, at 8:00 a.m. take 1000 mg of Tylenol, at noon take 800 mg of ibuprofen, at 4:00 p.m. take 1000 mg of Tylenol, at 8:00 p.m. take 800 mg of ibuprofen. Do not exceed 3000 mg of Tylenol in 24 hours. This method is proven to be as effective as an opioid for pain control. Prescriptions: New methocarbamol 750 mg tablet 750 mg PO Q8H 5 Days Qty: 15 0RF No Action sumatriptan succinate 100 mg tablet 100 mg PO Q2-4H PRN (Reason: migraine headache) Qty: 10 0RF Rx Instructions: do not exceed 2 doses per 24 hrs omeprazole 20 mg capsule,delayed release(DR/EC) 20 mg PO DAILY Qty: 30 1RF ibuprofen 600 mg tablet 600 mg PO Q8H PRN (Reason: pain) Qty: 90 0RF [id number]-[id number]-BB 3.5-10,000-1 mg/mL-unit/mL-% drops,suspension 4 drp otic (ear) left Q8H 7 Days Qty: 10 3RF buprenorphine-naloxone 8-2 mg film sublingual 0RF methylphenidate HCl 20 mg tablet 20 mg PO TID 0RF Fluzone Quad [id number] (PF) 60 mcg (15 mcg x 4)/0.5 mL syringe IM 0RF phenazopyridine [Pyridium] 100 mg tablet 100 mg PO TID PRN (Reason: pain) 2 Days Qty: 6 0RF nitrofurantoin monohyd/m-cryst [Macrobid] 100 mg capsule 100 mg PO Q12H 5 Days Qty: 10 0RF Rx Instructions: must administer with a meal/food Mirena 20 mcg/24 hours (6 yrs) 52 mg intrauterine device intrauterine 0RF ibuprofen 600 mg tablet 600 mg PO Q6H PRN (Reason: pain, moderate) Qty: 90 2RF Rx Instructions: always take w food in stomach Stand Alone Forms: Work/School Release
[2021-08-27] MEDS: Acetaminophen 325 MG TABLET 975 MG PO (17:08)
[2021-08-27 19:09] VITALS: BP 130/77; PULSE 79; RESP 16; TEMP 37; O2SAT 99
== END 2021-08-27 19:15 | disposition home or self-care (01) ==
PROVIDERS: Emergency Provider Emergency Medicine; PCP Nurse Practitioner Family
DX: S49.91XA Unspecified injury of right shoulder and upper arm, initial encounter (principal); M79.601 Pain in right arm; X50.0XXA Overexertion from strenuous movement or load, initial encounter; X50.1XXA Overexertion from prolonged static or awkward postures, initial encounter; Y93.9 Activity, unspecified; Y92.9 Unspecified place or not applicable; Y99.9 Unspecified external cause status
CPT/HCPCS: 93971; 99284

== ENCOUNTER 2022-12-03 20:12 | Emergency (ER) | payer OTHER, SELFPAY ==
[2022-12-03 21:02] VITALS: BP 149/101; PULSE 109; RESP 18; TEMP 36; O2SAT 100; BMI 43.8
--- NOTE | 2022-12-04 00:34 | ED_ITS ---
HPI - Fall General Chief Complaint: Fall Stated Complaint: fell/ hit head Time Seen by Provider: 12/04/22 00:34 Source: patient, RN notes reviewed and old records reviewed Mode of arrival: ambulatory History of Present Illness HPI Narrative: 31-year-old female with past medical history of anxiety, depression, anxiety, presenting to the ED complaining headache, forehead and nasal pain s/p mechanical trip and fall down 1 step with + head strike around 19:00. Patient states she is living in a new house, was caring large jug of water when missed step and fell face 1st into door frame. Denies symptoms prior to fall including CP/SOB, lightheadedness/dizziness, denies LOC or taking anticoagulation. Reports now with residual facial pressure. Denies vision change/loss, neck/back pain, urinary clot/retention, nausea/vomiting, numbness/tingling MD complaint: fall Onset (ago): hour(s) Related Data Home Medications Medication Instructions Recorded Confirmed buprenorphine 8 mg-naloxone 2 mg film sublingual 03/08/20 12/08/20 sublingual film flu vacc [id number] 6mos up(PF) 60 ml IM 03/08/20 12/08/20 mcg(15 mcgx4)/0.5 mL IM syringe levonorgestrel 21 mcg/24 hours (8 intrauterine 09/26/20 12/08/20 yrs) 52 mg intrauterine device (Mirena) copper 380 square mm intrauterine intrauterine 10/28/21 device (ParaGard T [id number]) Previous Rx's Medication Instructions Recorded omeprazole 20 mg capsule,delayed 20 mg PO DAILY #30 caps 06/21/20 release Allergies Allergy/AdvReac Type Severity Reaction Status Date / Time ciprofloxacin [From Cipro] Allergy Severe tachycardia, Verified 12/03/22 21:01 sob Sulfa (Sulfonamide Allergy rash, hives Verified 12/03/22 21:01 Antibiotics) Review of Systems Review of Systems: Constitutional: No Fever, No Chills ENT/Mouth: + facial pain, No Ear Pain, No Nasal Congestion, No sore throat, No Rhinorrhea, No Swallowing Difficulty Cardiovascular: No Chest Pain, No SOB Respiratory: No Cough, No Sputum, No Wheezing Gastrointestinal: No Nausea, No Vomiting, No Diarrhea, No Constipation, No Abdominal pain Genitourinary: No Dysuria, No Urinary Frequency, No Hematuria, No Urinary Incontinence/retention Musculoskeletal: No joint pain, No Myalgias, No Joint Swelling Skin: No Skin Lesions, No rash Neuro: No Weakness, No Numbness, No Paresthesias, + headache, no LOC Yes all other systems are reviewed and are negative Constitutional: Constitutional: Reports as per HPI Neurologic: Denies Abnormal speech present [facility] Past Medical History Attestation statement: The following information was validated with the patient. Source: old records reviewed Medical History Anxiety Depression with anxiety Heartburn Lymphadenopathy No known health problems Opioid abuse, in remission Tension headache Vulvar dermatitis Surgical History History of foot surgery Family History Family History Father ADHD Bipolar disorder Mother H/O: manic depressive disorder Anxiety Breast cancer Cervical cancer HTN (hypertension) Brother No problems noted. Sister No problems noted. Maternal Grandfather Stomach cancer Colon cancer High cholesterol Stroke Maternal Grandmother No problems noted. Paternal Grandmother Brain cancer Lung cancer Obese Paternal Grandfather No problems noted. Maternal Uncle Skin cancer Brother No problems noted. Sister No problems noted. Daughter No problems noted. Social History Social History Alcohol intake: never Smoked in Last 30 Days: No Use of substances other than those prescribed or required for medical reasons: No Advance Directives: No Advance Directives Information Provided: Yes Gender identity: Female Physical Exam Vital Signs: Vital Signs: Last Vital Signs Temp 96.8 F 12/03/22 21:02 Pulse 109 H 12/03/22 21:02 Resp 18 12/03/22 21:02 BP 149/101 H 12/03/22 21:02 Pulse Ox 100 12/03/22 21:02 O2 Del Method Room Air 12/03/22 21:02 BMI result Body Mass Index 43.8 Const: General: cooperative, healthy appearing, no acute distress, alert and awake Orientation/consciousness: patient oriented x3 Limitations: no limitations HEENT: Other: + small left upper forehead abrasion noted. No appreciable hematoma + small superficial nasal bridge abrasion with mild swelling and ecchymosis. No septal deviation. Mildly tender to palpation. No septal hematoma. No orbital step-off. EOMs intact without entrapment Head: Yes normal to inspection, Yes atraumatic, No Brock's sign and No raccoon eyes Ears: hearing grossly normal bilaterally General nose exam: no epistaxis Face and sinus: No crepitus and No edema Throat: Yes posterior oropharynx normal, Yes tonsils normal, Yes uvula midline, No peritonsillar mass and No uvular edema Eyes: General: appearance normal, both eyes and all related structures Pupils: Equal, round and reactive pupils present EOM: EOMs intact bilaterally Neck: Neck: Yes normal visual inspection, Yes no meningeal signs, No anterior neck swelling and No torticollis Resp: Effort & Inspection: normal respiratory effort and no respiratory distress Cardio: Rate: regular rate Heart sounds: S1 normal heart sound present and S2 normal heart sound present GI: Inspection: Yes normal to inspection Back/Spine/Pelvis: Other: No midline cervical/thoracic/lumbar spinous tenderness/step-off or deformity Skin: Rashes: no rashes Wounds: no wounds Neuro: General: patient oriented x3, gait normal, tone normal, moves all extremities, no meningeal signs, no focal motor deficits and CN's II-XI intact bilaterally Cranial nerves: Yes CN's II-XII intact bilaterally, Yes Equal, round and reactive pupils present and Yes Bilaterally intact EOM present Cognition (Neuro): normal cognition Speech: No Abnormal speech present Gait exam (Neuro): Normal gait present Motor exam (neuro): 5/5 motor strength present throughout Extrem: General: Yes normal to inspection Medical Decision Making Medical Decision Making MDM Narrative: 31-year-old female with past medical history of anxiety, depression, anxiety, presenting to the ED complaining headache, forehead and nasal pain s/p mechanical trip and fall down 1 step with + head strike around 19:00. On exam initially hypertensive and tachycardic likely from anxiety, physical exam as noted above. No focal neuro deficits. No septal hematoma or deviation. Concern for concussion vs nasal fracture. No evidence of orbital blowout fracture. Unlikely ICH/SAH. [place] Head CT Rule negative Plan: Encourage Tylenol/ibuprofen, reassurance Offered head CT although discussed with patient not needed at this time due to clinical judgment rules, and probability of nasal bone fracture although imaging not needed, patient is agreeable to refrain from imaging at this time Results discussed with patient including worrisome signs and symptoms and strict return precautions, and when to return to the emergency department. They verbalized understanding and feel safe for discharge at this time. Differential Diagnosis Differential Diagnoses: The differential diagnosis associated with the presentation includes As above Admission/Observation Consideration of admission/observation: Escalation of care including admission/observation considered Lab Data MDM Lab Attestation statement: I reviewed the patient's lab results. Radiology Impression Discussion of test interpretation with radiology: I have reviewed the radiologist's reading. External Record Review External record reviewed: Inpatient record, Office record, Outpatient record, Prior outpatient labs, Prior outpatient radiology, Primary care record and Outside ED record Tests considered The following testing was considered but not selected: As above Prescription Management I considered prescription management with: Pain Medication Discharge Plan Discharge Clinical Impression: Facial injury, Fall Patient Disposition: Home, Self-Care Instructions: Facial Contusion (ED) Additional Instructions: You likely have a mild concussion as well as a nasal bone fracture Please alternate Tylenol and Motrin at home. Ice your face Follow-up with ear nose throat specialist as well as her PCP If you develop constant or worsening/unremitting headache, persistent nausea/vomiting, vision changes return to the emergency department immediately Practice brain rest, avoid bright lights and screen time Prescriptions: No Action omeprazole 20 mg capsule,delayed release(DR/EC) 20 mg PO DAILY Qty: 30 1RF buprenorphine-naloxone 8-2 mg film sublingual Fluzone Quad [id number] (PF) 60 mcg (15 mcg x 4)/0.5 mL syringe IM ParaGard T [id number] 380 square mm intrauterine device intrauterine Mirena 20 mcg/24 hours (6 yrs) 52 mg intrauterine device intrauterine Referrals: Farhan Rodgers, [employer] [Primary Care Provider] - 3 days Stand Alone Forms: Work/School Release Interventions: ED Discharge Assessment Last Done: 12/04/22 01:27 Discharge Date/Time: 12/04/22 02:00
== END 2022-12-04 02:00 | disposition home or self-care (01) ==
PROVIDERS: Emergency Provider Internal Medicine; PCP Nurse Practitioner Family
DX: S00.81XA Abrasion of other part of head, initial encounter (principal); S00.31XA Abrasion of nose, initial encounter; W10.8XXA Fall (on) (from) other stairs and steps, initial encounter; I10 Essential (primary) hypertension; R00.0 Tachycardia, unspecified; F11.20 Opioid dependence, uncomplicated; Y93.89 Activity, other specified; Y92.009 Unspecified place in unspecified non-institutional (private) residence as the place of occurrence of the external cause; Y99.9 Unspecified external cause status
CPT/HCPCS: 99282; 99284

== ENCOUNTER → 2022-12-20 11:41 | Outpatient (AMB) | payer OTHER, SELFPAY ==
--- NOTE | 2022-12-20 11:51 | MHC.OFFWIV ---
Intake Vital Signs 12/20/22 11:52 Height 5 ft 7 in Weight 278 lb BMI 43.5 BP 140/90 H Blood Pressure Location Lt brachial Position Sitting Pulse 111 H Pulse Source Pulse Oximeter Temp 97.6 F Temp Source Temporal Artery Scan Pulse Oximetry (%) 100 Oxygen Delivery Method Room Air Intake Visit Reasons: EP Injury due to Fall (LT Knee) Intake Note: Pt is here c/o left knee pain. Pt states she fell two weeks ago and was seen at the emergency room but wasn't in pain until now. Pt states she feels something is wrong with her knee. Patient Tobacco Use Status: Never used Tobacco Allergies ciprofloxacin [From Cipro] Allergy (Severe, Verified 12/20/22 11:53) tachycardia, sob Sulfa (Sulfonamide Antibiotics) Allergy (Verified 12/20/22 11:53) rash, hives Do you need a note to return to daycare/school/sports/work: Yes HPI HPI Comments History of Present Illness Details The patient presents to urgent care for evaluation of left knee pain. She states that about a week ago she fell down the last stair in her footwear and her water bottle slammed into her right thigh causing a bruise. When she fell she hit against a wall and hit her head no LOC. She did not pay attention to her left knee at the time and did not have any direct trauma to the left knee but over the past week she has been developing left knee pain. There was a bruise to the distal left thigh. She is now noticing that there is swelling to the distal thigh and around the knee. She has decreased range of motion of the left knee. [facility] Medical History Anxiety Depression with anxiety Heartburn Lymphadenopathy No known health problems Opioid abuse, in remission Tension headache Vulvar dermatitis Surgical History History of foot surgery Family History Father ADHD Bipolar disorder Mother H/O: manic depressive disorder Anxiety Breast cancer Cervical cancer HTN (hypertension) Brother No problems noted. Sister No problems noted. Maternal Grandfather Stomach cancer Colon cancer High cholesterol Stroke Maternal Grandmother No problems noted. Paternal Grandmother Brain cancer Lung cancer Obese Paternal Grandfather No problems noted. Maternal Uncle Skin cancer Brother No problems noted. Sister No problems noted. Daughter No problems noted. Social History Alcohol intake: never Patient Tobacco Use Status: Never used Tobacco Gender identity: Female Female Reproductive History Menstrual Age of Menarche: 11 Review of Systems Const Reports no additional complaints ENT Reports no additional complaints Card Denies chest pain and Denies dyspnea Resp Denies cough and Denies dyspnea GI Denies abdominal pain Musc Reports as per HPI Neuro Denies focal weakness Psych Reports no additional complaints Physical Exam Vital Signs: Last Vital Signs Temp 97.6 F 12/20/22 11:52 Pulse 111 H 12/20/22 11:52 BP 140/90 H 12/20/22 11:52 Pulse Ox 100 12/20/22 11:52 Oxygen Delivery Method Room Air 12/20/22 11:52 BMI result Body Mass Index 43.5 Const General: cooperative and healthy appearing Orientation/consciousness: patient oriented x3 Back/Spine/Pelvis Back: No back tenderness Skin General skin exam: no rashes or lesions noted Neuro General: patient oriented x3 Extrem Other: Left Knee: Full range of motion. No erythema induration or abrasions. Mild swelling just proximal, to the knee joint resolving ecchymosis to the distal thigh No ligamentous instability appreciated. Tenderness with palpation, medial and lateral aspect No lower extremity edema Right lower extremity: Resolving ecchymosis to the distal right thigh Psych Attitude: cooperative Assessment & Plan Assessment & Plan (1) Strain of left knee: Code(s): S86.912A - Strain of unspecified muscle(s) and tendon(s) at lower leg level, left leg, initial encounter Plan Symptoms consistent with knee strain/sprain status post recent injury. Patient was expressing concerns for DVT and given the history and physical I think this is extremely unlikely. 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 I think that her swelling and symptoms are consistent with the recent trauma. Patient was reassured. She was given a knee immobilizer and recommended use ibuprofen for any discomfort. Recommend follow-up to PCP Coding Level of Care Code Est Pt Level 3 (20615) Diagnoses Strain of left knee S86.912A
[2022-12-20 11:52] VITALS: BP 140/90; PULSE 111; TEMP 36.4; O2SAT 100; BMI 43.5
== END ==
PROVIDERS: PCP Nurse Practitioner Family; Visit Provider Emergency Medicine
DX: S86.912A Strain of unspecified muscle(s) and tendon(s) at lower leg level, left leg, initial encounter (principal)
CPT/HCPCS: 99213

== ENCOUNTER 2023-01-17 08:32 | Outpatient (AMB) | payer OTHER, SELFPAY ==
[2023-01-17 09:20] VITALS: BP 160/120; PULSE 103; O2SAT 100; BMI 43.1
--- NOTE | 2023-01-17 09:20 | MHC.PC.OV ---
Vital Signs 01/17/23 09:20 01/17/23 09:52 Height 5 ft 7 in Weight 275 lb 6 oz BMI 43.1 BP 160/120 H 130/90 H Blood Pressure Location Rt brachial Lt brachial Position Sitting Sitting Pulse 103 H Pulse Source Pulse Oximeter Pulse Oximetry (%) 100 Oxygen Delivery Method Room Air Intake Visit Reasons: Left knee injury Intake Note: pt says the past 2 weeks she has had dizzy spells and floaters and has been very tired and is very tearful she says she has no appetite this started about 2 weeks ago she stomach upset pt says her knee is starting to get better Allergies ciprofloxacin [From Cipro] Allergy (Severe, Verified 01/17/23 09:25) tachycardia, sob Sulfa (Sulfonamide Antibiotics) Allergy (Verified 01/17/23 09:25) rash, hives Medication List - Last Reconciled 01/17/23 by JIGNA De La Cruz-LEODAN buprenorphine-naloxone 8-2 mg film sublingual copper (ParaGard T 380A) intrauterine omeprazole 20 mg PO DAILY Tobacco use date assessed: 01/17/23 Dental Screening Dental Screen Date: 01/17/23 HPI Left knee injury HPI Details Pt c/o increased anxiety and mind racing. She reports having a friend pass away recently due to a GI bleed. Pt has a lot of anxiety surrounding her health. Pt is in tears today and very anxious. Denies any SI and HI. Pt's blood pressure is elevated today as well. Will send propranolol for BP and anxiety. Denies chest pain, shortness of breath, headache, dizziness, and blurred vision. Will order labs and do an EKG in office. she does report having palpitations, intermittent, will order a holter to assess for any underlying arrhythmia [facility] Medical History Anxiety Depression with anxiety Heartburn Lymphadenopathy No known health problems Opioid abuse, in remission Tension headache Vulvar dermatitis Surgical History History of foot surgery Family History Father ADHD Bipolar disorder Mother H/O: manic depressive disorder Anxiety Breast cancer Cervical cancer HTN (hypertension) Brother No problems noted. Sister No problems noted. Maternal Grandfather Stomach cancer Colon cancer High cholesterol Stroke Maternal Grandmother No problems noted. Paternal Grandmother Brain cancer Lung cancer Obese Paternal Grandfather No problems noted. Maternal Uncle Skin cancer Brother No problems noted. Sister No problems noted. Daughter No problems noted. Social History Alcohol intake: never Patient Tobacco Use Status: Never used Tobacco e-Cigarette/Vaping Use: Never Used service: No Current occupational status: employed Current occupation: [employer] Gender identity: Female Cognitive needs: No Hearing needs: No Vision needs: No Female Reproductive History Menstrual Age of Menarche: 11 Review of Systems Const Reports as per HPI Physical exam (Primary Care) Vital Signs: Last Vital Signs Pulse 103 H 01/17/23 09:20 BP 130/90 H 01/17/23 09:52 Pulse Ox 100 01/17/23 09:20 Oxygen Delivery Method Room Air 01/17/23 09:20 BMI result Body Mass Index 43.1 Tobacco/Smoking Status: Tobacco use Status Tobacco use date assessed 01/17/23 01/17/23 09:29 Patient Tobacco Use Status Never used Tobacco 01/17/23 09:29 e-Cigarette/Vaping Use Never Used 01/17/23 09:29 Const General: cooperative Nutritional Appearance: obese morbidly obese Orientation/consciousness: patient oriented x3 Neuro General: patient oriented x3 Psych Appearance: grossly normal Mental Status: mental status grossly normal Speech and movement: Normal speech and movement present Affect: normal affect Attitude: cooperative Thought process: Normal thought process present Thought content: Normal thought content present Insight: Good insight present (Psych) Judgement: Good judgement present (Psych) Assessment and Plan Assessment & Plan (1) Depression with anxiety: Code(s): F41.8 - Other specified anxiety disorders Plan: propranolol holter (2) Palpitations: Code(s): R00.2 - Palpitations Plan: holter (3) HTN (hypertension): Code(s): I10 - Essential (primary) hypertension Plan The patient agreed to the use of a medical director of hospice for this encounter. Scribed for LUIS CARLOS Zhong by Bessy Burns medical director of hospice, on 01/17/2023 at 09:30 EST. Orders: Orders Complete Blood Count Auto Diff Today F41.8 - Other specified anxiety disorders Comprehensive [place]. Panel Fast Today F41.8 - Other specified anxiety disorders UA CC w/rflx Micro + Cult Today F41.8 - Other specified anxiety disorders Lipid Panel Today F41.8 - Other specified anxiety disorders AMB EKG-In Office Today I10 - Essential (primary) hypertension, R00.2 - Palpitations TSH reflex Free T4 Today F41.8 - Other specified anxiety disorders ECG 3 day holter monitor Today R00.2 - Palpitations Medications: New propranolol ER 60 mg PO DAILY 30 days 30 caps 2RF Coding Level of Care Code Est Pt Level 3 (23680) Diagnoses Depression with anxiety F41.8 Palpitations R00.2 HTN (hypertension) I10
[2023-01-17 09:52] VITALS: BP 130/90
== END 2023-01-17 11:46 | disposition home or self-care (01) ==
PROVIDERS: PCP Nurse Practitioner Family; Visit Provider Nurse Practitioner Family
DX: F41.8 Other specified anxiety disorders (principal); R00.2 Palpitations; I10 Essential (primary) hypertension
CPT/HCPCS: 99213

== ENCOUNTER 2023-01-19 09:09 | Outpatient (REF) | payer OTHER, SELFPAY ==
[2023-01-19 11:28] LABS: MANUAL DIFF FLAG NO
[2023-01-19 11:30] LABS: Appearance Urine Clear; Color Urine Yellow; Glucose Urine UA Negative (Negative); Leukocyte Esterase Urine Negative (Negative); Nitrite Urine Negative (Negative); UMIC TRIGGER UACC YES; Urine Blood Moderate (2+) (Negative); Urine Ketones Negative (Negative); Urine Protein Negative (Neg-Trace)
[2023-01-19 11:33] LABS: Bacteria Urine None Seen (None Seen); Hyaline Casts Urine 0-2 /LPF (0-2); RBC Urine >20 /HPF (0-2); Squamous Epithelial Cell Urine 0-2 /HPF (0-2); WBC Urine 0-5 /HPF (0-5)
[2023-01-19 11:42] LABS: Basophils Percent Auto 0.4 % (0-2); Eosinophils Absolute Auto 0.2 X10*3/uL (0.0-0.4); Eosinophils Percent Auto 2.5 % (0-4); Hematocrit 36.3 % (37.0-47.0); Hemoglobin 11.7 g/dl (12.0-16.0); Imm Gran Abs Auto 0.02 X10*3/uL (0.00-0.03); Imm Gran Pct Auto 0.3 % (0.0-0.4); Lymphocytes Absolute Auto 1.6 X10*3/uL (1.2-4.9); Mean Corpuscular HGB Conc 32.2 g/dl (31.0-35.0); Mean Corpuscular Hemoglobin 26.9 pg (27.0-33.0); Mean Corpuscular Volume 83.4 fL (80.0-98.0); Mean Platelet Volume 9.3 fL (9.4-12.3); Monocytes Absolute Auto 0.3 X10*3/uL (0.1-1.2); Monocytes Percent Auto 4.4 % (2-11); Neutrophils Absolute Auto 5.3 x10*3/uL (2.0-8.3); Neutrophils Percent Auto 71.4 % (45-73); Platelet Count 305 X10*3/uL (160-400); Red Blood Count 4.35 X10*6/uL (4.20-5.50); Red Cell Distribution Width 13.2 % (11.0-16.0); White Blood Count 7.5 X10*3/uL (4.8-10.8)
[2023-01-19 11:58] LABS: Alanine Aminotransferase 10 U/L (0-31); Alkaline Phosphatase 58 U/L (39-117); Anion Gap 8 (12-20); Aspartate Amino Transferase 13 U/L (5-31); Bilirubin Total 0.4 mg/dL (0.0-1.0); Blood Urea Nitrogen 13 mg/dL (9-16); Calcium 9.2 mg/dL (8.4-10.2); Carbon Dioxide 27 mmol/L (22-29); Chloride 107 mmol/L (96-108); Cholesterol 153 mg/dL (<200); Estimated Glomerular Filt Rate > 60; Glucose Fasting 86 mg/dL (60-99); HDL Cholesterol 58 mg/dL (>40); LDL Cholesterol Calculated 84 mg/dL (<100); Potassium 4.4 mmol/L (3.3-5.1); Sodium 138 mmol/L (135-145); Total Protein 7.6 g/dL (6.5-8.0); Triglycerides 56 mg/dL (<150)
[2023-01-19 12:18] LABS: Thyroid Stimulating Hormone 2.58 uIU/mL (0.32-4.0)
== END 2023-01-19 09:10 | disposition home or self-care (01) ==
LOC: HO.HMGCLDS 09:09
PROVIDERS: PCP Nurse Practitioner Family; Visit Provider Nurse Practitioner Family
DX: F41.8 Other specified anxiety disorders (principal)
CPT/HCPCS: 36415; 80053; 80061; 81001; 84439; 84443; 85025

== ENCOUNTER 2023-01-29 08:53 | Outpatient (REF) | payer OTHER, SELFPAY ==
[2023-01-29 11:40] LABS: MANUAL DIFF FLAG NO
[2023-01-29 11:48] LABS: Basophils Percent Auto 0.5 % (0-2); Eosinophils Absolute Auto 0.2 X10*3/uL (0.0-0.4); Eosinophils Percent Auto 2.5 % (0-4); Hemoglobin 11.6 g/dl (12.0-16.0); Imm Gran Abs Auto 0.02 X10*3/uL (0.00-0.03); Imm Gran Pct Auto 0.3 % (0.0-0.4); Lymphocytes Absolute Auto 1.7 X10*3/uL (1.2-4.9); Lymphocytes Percent Auto 29.1 % (20-40); Mean Corpuscular HGB Conc 32.2 g/dl (31.0-35.0); Mean Corpuscular Hemoglobin 26.8 pg (27.0-33.0); Mean Corpuscular Volume 83.1 fL (80.0-98.0); Mean Platelet Volume 9.1 fL (9.4-12.3); Monocytes Absolute Auto 0.3 X10*3/uL (0.1-1.2); Monocytes Percent Auto 4.7 % (2-11); Neutrophils Absolute Auto 3.7 x10*3/uL (2.0-8.3); Neutrophils Percent Auto 62.9 % (45-73); Platelet Count 288 X10*3/uL (160-400); Red Blood Count 4.33 X10*6/uL (4.20-5.50); White Blood Count 5.9 X10*3/uL (4.8-10.8)
[2023-01-29 12:43] LABS: Folate 12.5 ng/mL (> or = 4.0); Vitamin B12 486 pg/mL (200-900)
[2023-01-29 13:03] LABS: Iron 51 mcg/dL (30-160); Percent Iron Saturation 18 % (15-50); Total Iron Binding Capacity 280 mcg/dL (228-428); Unsaturated Iron Binding 229 ug/dL
[2023-01-29 13:13] LABS: Ferritin 20 ng/mL (10-122)
== END 2023-01-29 08:54 | disposition home or self-care (01) ==
LOC: HO.HMGCLDS 08:53
PROVIDERS: PCP Nurse Practitioner Family; Visit Provider Nurse Practitioner Family
DX: D64.9 Anemia, unspecified (principal)
CPT/HCPCS: 36415; 82607; 82728; 82746; 83540; 85025

== ENCOUNTER 2023-02-05 07:36 | Outpatient (AMB) | payer OTHER, SELFPAY ==
--- NOTE | 2023-02-05 07:23 | A.OFFPC_ITS ---
Intake Visit Reasons: fill out STD paper work Allergies ciprofloxacin [From Cipro] Allergy (Severe, Verified 01/17/23 09:25) tachycardia, sob Sulfa (Sulfonamide Antibiotics) Allergy (Verified 01/17/23 09:25) rash, hives Medication List - Last Reconciled 02/05/23 by LUIS CARLOS De La Cruz buprenorphine-naloxone 8-2 mg film sublingual copper (ParaGard T 380A) intrauterine omeprazole 20 mg PO DAILY propranolol ER 80 mg PO DAILY 30 days Tobacco use date assessed: 01/17/23 HPI fill out STD paper work HPI Details Pt reports increased anxiety. She reports panic attacks when walking into work and other places. ? agoraphobia. Will start buspirone 5mg bid. Denies any SI and HI. Pt reports that her blood pressure has been elevated as well, in the 130s-140s/90s-100s. Will increase propranolol from 60mg to 80mg. Denies chest pain, shortness of breath, dizziness, and blurred vision. She does report intermittent mild headaches. [facility] Medical History Anxiety Depression with anxiety Heartburn Lymphadenopathy No known health problems Opioid abuse, in remission Tension headache Vulvar dermatitis Surgical History History of foot surgery Family History Father ADHD Bipolar disorder Mother H/O: manic depressive disorder Anxiety Breast cancer Cervical cancer HTN (hypertension) Brother No problems noted. Sister No problems noted. Maternal Grandfather Stomach cancer Colon cancer High cholesterol Stroke Maternal Grandmother No problems noted. Paternal Grandmother Brain cancer Lung cancer Obese Paternal Grandfather No problems noted. Maternal Uncle Skin cancer Brother No problems noted. Sister No problems noted. Daughter No problems noted. Social History Alcohol intake: never Patient Tobacco Use Status: Never used Tobacco e-Cigarette/Vaping Use: Never Used service: No Current occupational status: employed Current occupation: [employer] Gender identity: Female Cognitive needs: No Hearing needs: No Vision needs: No Female Reproductive History Menstrual Age of Menarche: 11 Review of Systems Const Reports as per HPI Physical exam (Primary Care) Tobacco/Smoking Status: Tobacco use Status Tobacco use date assessed 01/17/23 02/05/23 07:30 Patient Tobacco Use Status Never used Tobacco 02/05/23 07:30 e-Cigarette/Vaping Use Never Used 02/05/23 07:30 Const General: cooperative Orientation/consciousness: patient oriented x3 Neuro General: patient oriented x3 Psych Appearance: grossly normal Mental Status: mental status grossly normal Speech and movement: Clear speech present Affect: normal affect Attitude: cooperative Thought process: Normal thought process present Thought content: Normal thought content present Insight: Good insight present (Psych) Judgement: Good judgement present (Psych) Telehealth Telehealth Location of provider rendering services: practice address Location of patient: address on file Patient Identification confirmed using: Name, : Yes Telehealth method: video Patient verbally consented to treatment: Yes Patient verbally consented to billing insurance company: Yes Patient informed of any privacy concerns related to visit: Yes Minutes spent on Phone/Video with Pt.: 10 Assessment and Plan Assessment & Plan (1) HTN (hypertension): Code(s): I10 - Essential (primary) hypertension (2) Palpitations: Code(s): R00.2 - Palpitations (3) Depression with anxiety: Code(s): F41.8 - Other specified anxiety disorders Plan The patient agreed to the use of a center medical specialist for this encounter. Scribed for LUIS CARLOS Zhong by Bessy Burns center medical specialist, on 02/05/2023 at 07:25 EST. Medications: New buspirone 5 mg PO BID 60 tabs 2RF 30 days Changed From propranolol ER 60 mg PO DAILY 30 days 30 caps 2RF To propranolol ER 80 mg PO DAILY 30 caps 2RF 30 days Coding Level of Care Code Tele Est Pt Level 3 (80014) Diagnoses HTN (hypertension) I10 Palpitations R00.2 Depression with anxiety F41.8
== END 2023-02-05 08:52 | disposition home or self-care (01) ==
PROVIDERS: PCP Nurse Practitioner Family; Visit Provider Nurse Practitioner Family
DX: I10 Essential (primary) hypertension (principal); R00.2 Palpitations; F41.8 Other specified anxiety disorders; G44.219 Episodic tension-type headache, not intractable
CPT/HCPCS: 99213

== ENCOUNTER 2023-05-23 12:24 | Outpatient (REF) | payer OTHER, SELFPAY ==
[2023-05-23 16:25] LABS: B Type Natriuretic Peptide 41 pg/mL (<100)
[2023-05-23 16:50] LABS: Alanine Aminotransferase 13 U/L (0-31); Alkaline Phosphatase 66 U/L (39-117); Anion Gap 12 (12-20); Aspartate Amino Transferase 14 U/L (5-31); Bilirubin Total 0.4 mg/dL (0.0-1.0); Blood Urea Nitrogen 15 mg/dL (9-16); Calcium 9.4 mg/dL (8.4-10.2); Carbon Dioxide 27 mmol/L (22-29); Chloride 106 mmol/L (96-108); Estimated Glomerular Filt Rate > 60; Glucose Random 87 mg/dL (60-115); Potassium 4.5 mmol/L (3.3-5.1); Sodium 140 mmol/L (135-145); Total Protein 7.7 g/dL (6.5-8.0)
[2023-05-23 16:53] LABS: TSH reflex Free T4 2.81 uIU/mL (0.32-4.0)
== END 2023-05-23 12:25 | disposition home or self-care (01) ==
LOC: HO.HMGCLDS 12:24
PROVIDERS: PCP Nurse Practitioner Family; Visit Provider Nurse Practitioner Family
DX: M79.89 Other specified soft tissue disorders (principal)
CPT/HCPCS: 36415; 80053; 83880; 84443

== ENCOUNTER 2023-06-14 07:40 | Outpatient (REF) | payer OTHER, SELFPAY ==
[2023-06-14 11:52] LABS: MANUAL DIFF FLAG NO
[2023-06-14 11:54] LABS: Basophils Percent Auto 0.3 % (0-2); Eosinophils Absolute Auto 0.2 X10*3/uL (0.0-0.4); Eosinophils Percent Auto 3.3 % (0-4); Hematocrit 34.8 % (37.0-47.0); Hemoglobin 11.1 g/dl (12.0-16.0); Imm Gran Abs Auto 0.02 X10*3/uL (0.00-0.03); Imm Gran Pct Auto 0.3 % (0.0-0.4); Lymphocytes Absolute Auto 1.7 X10*3/uL (1.2-4.9); Lymphocytes Percent Auto 24.9 % (20-40); Mean Corpuscular HGB Conc 31.9 g/dl (31.0-35.0); Mean Corpuscular Hemoglobin 25.4 pg (27.0-33.0); Mean Corpuscular Volume 79.6 fL (80.0-98.0); Mean Platelet Volume 8.8 fL (9.4-12.3); Monocytes Absolute Auto 0.4 X10*3/uL (0.1-1.2); Monocytes Percent Auto 6.2 % (2-11); Neutrophils Absolute Auto 4.5 x10*3/uL (2.0-8.3); Platelet Count 330 X10*3/uL (160-400); Red Blood Count 4.37 X10*6/uL (4.20-5.50)
[2023-06-14 12:24] LABS: Iron 34 mcg/dL (30-160); Percent Iron Saturation 11 % (15-50); Total Iron Binding Capacity 308 mcg/dL (228-428); Unsaturated Iron Binding 274 ug/dL
[2023-06-14 12:30] LABS: Ferritin 11 ng/mL (10-122)
[2023-06-17 15:14] LABS: Hematocrit 34.1 % (35.0-45.0); Hemoglobin 11.2 g/dL (11.7-15.5); MCH 25.5 pg (27.0-33.0); MCV 77.7 fL (80.0-100.0); RBC 4.39 Million/uL (3.80-5.10); RDW 13.5 % (11.0-15.0)
== END 2023-06-14 07:41 | disposition home or self-care (01) ==
LOC: HO.HMGCLDS 07:40
PROVIDERS: PCP Nurse Practitioner Family; Visit Provider Nurse Practitioner Family
DX: D64.9 Anemia, unspecified (principal)
CPT/HCPCS: 36415; 82728; 83020; 83540; 85014; 85018; 85025; 85041

== ENCOUNTER 2023-06-14 07:58 | Outpatient (REF) | payer OTHER, SELFPAY ==
[2023-06-14 11:51] LABS: Appearance Urine Clear; Color Urine Yellow; Glucose Urine UA Negative (Negative); Leukocyte Esterase Urine Negative (Negative); Nitrite Urine Negative (Negative); PH 6.5 (5.0-9.0); Specific Gravity - Urine 1.015 (1.005-1.025); Urine Blood Negative (Negative); Urine Ketones Negative (Negative); Urine Protein Negative (Neg-Trace)
== END 2023-06-14 07:59 | disposition home or self-care (01) ==
LOC: HO.HMGCLDS 07:58
PROVIDERS: Visit Provider Nurse Practitioner Family
DX: F41.8 Other specified anxiety disorders (principal)
CPT/HCPCS: 81003

== ENCOUNTER 2023-08-08 13:14 | Outpatient (AMB) | payer OTHER, SELFPAY ==
--- NOTE | 2023-08-08 13:19 | MHC.PC.OV ---
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: No Accompanied by: Self / Same As Patient Allergies ciprofloxacin [From Cipro] Allergy (Severe, Verified 08/08/23 13:20) tachycardia, sob Sulfa (Sulfonamide Antibiotics) Allergy (Verified 08/08/23 13:20) rash, hives Medication List - Last Reconciled 08/08/23 by LUIS CARLOS De La Cruz buprenorphine-naloxone 8-2 mg film sublingual copper (ParaGard T 380A) intrauterine ferrous sulfate 325 mg PO BID 30 days omeprazole 20 mg PO DAILY propranolol ER 80 mg PO DAILY Tobacco use date assessed: 08/08/23 Dental Screening Dental Screen Date: 08/08/23 Did you have a dental visit in the last 12 months?: Yes Did you have a dental problem in the last 6 months where you did not have access to dental care?: No Was dental information given to patient?: Patient has dentist HPI Physical exam HPI Details Pt is here for a PE. Will order labs. 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 Pt has a family hx of breast cancer (mother diagnosed at age 40). Will order mammo. Pt is morbidly obese. She is no longer taking a stimulant which may be contributing to weight gain. Educated pt on proper diet and portion sizes. Pt's blood pressure is elevated today. Will have pt monitor her blood pressure at home and send readings via portal, Hx of anxiety, especially coming into medical facilities [facility] Medical History Anxiety Depression with anxiety Heartburn Lymphadenopathy No known health problems Opioid abuse, in remission Tension headache Vulvar dermatitis Surgical History History of foot surgery Family History Father ADHD Bipolar disorder Mother H/O: manic depressive disorder Anxiety Breast cancer Cervical cancer HTN (hypertension) Brother No problems noted. Sister No problems noted. Maternal Grandfather Stomach cancer Colon cancer High cholesterol Stroke Maternal Grandmother No problems noted. Paternal Grandmother Brain cancer Lung cancer Obese Paternal Grandfather No problems noted. Maternal Uncle Skin cancer Brother No problems noted. Sister No problems noted. Daughter No problems noted. Social History Alcohol intake: never Patient Tobacco Use Status: Never used Tobacco e-Cigarette/Vaping Use: Never Used service: No Current occupational status: employed Current occupation: [employer] Gender identity: Female Cognitive needs: No Hearing needs: No Vision needs: No Female Reproductive History Menstrual Age of Menarche: 11 Questionnaire AUDIT C Alcohol Use Questionnaire (AUDIT-C) 1. How often do you have a drink containing alcohol?: Never Total Score: 0 Score Reviewed/Action Taken: Yes MINA-7 AMB Questionnaire MINA-7 Date MINA - 7 assessed: 08/08/23 Source: Developed by Drs. Musa Lott, Darby Dutton, Michelet Miranda and colleagues, with an educational trini from [employer]. Review of Systems Const Denies chills and Denies fever(s) Eyes Denies blurry vision ENT Denies vertigo, Denies dizziness and Denies sore throat Card Denies chest pain at rest, Denies chest pain with activity, Denies diaphoresis, Denies dyspnea and Denies dyspnea on exertion Resp Denies cough, Denies dyspnea, Denies dyspnea on exertion and Denies wheezing GI Denies abdominal pain, Denies melena, Denies hematochezia, Denies constipation, Denies diarrhea and Denies loose stools Denies hematuria Musc Denies numbness and Denies tingling Skin/Breast Denies lesions Neuro Denies vertigo, Denies dizziness, Denies numbness and Denies tingling Psych Denies anxiety, Denies depression, Denies homicidal ideation, Denies suicidal ideation and Denies other (substance abuse) Aller/Immun Denies wheezing Physical exam (Primary Care) Vital Signs: Last Vital Signs Pulse 83 08/08/23 13:20 Pulse Ox 100 08/08/23 13:20 Oxygen Delivery Method Room Air 08/08/23 13:20 BMI result Body Mass Index 48.1 Tobacco/Smoking Status: Tobacco use Status Tobacco use date assessed 08/08/23 08/08/23 13:23 Patient Tobacco Use Status Never used Tobacco 08/08/23 13:23 e-Cigarette/Vaping Use Never Used 08/08/23 13:23 Const General: cooperative Nutritional Appearance: obese morbidly obese Orientation/consciousness: patient oriented x3 HENMT Head: Yes normal to inspection, Yes normocephalic and Yes atraumatic Ears: TM's normal bilaterally Eyes General: appearance normal, both eyes and all related structures Alignment and Position: alignment normal and position normal Neck Neck: Yes normal visual inspection and Yes no lymphadenopathy Thyroid: Thyroid normal Resp Effort & Inspection: normal respiratory effort Auscultation: clear to auscultation bilaterally Cardio Rate: regular rate Rhythm: regular rhythm Heart sounds: S1 normal heart sound present, S2 normal heart sound present and no murmurs GI Palpation (GI): Soft to palpation and nontender Auscultation: normal bowel sounds Skin Rashes: no rashes Neuro General: patient oriented x3, moves all extremities, no focal motor deficits and deep tendon reflexes 2+ bilaterally Romberg Test: Negative Psych Appearance: grossly normal Mental Status: mental status grossly normal Speech and movement: Normal speech and movement present Affect: normal affect Attitude: cooperative Thought process: Normal thought process present Thought content: Normal thought content present Insight: Good insight present (Psych) Judgement: Good judgement present (Psych) Assessment and Plan Assessment & Plan (1) Physical exam: Code(s): Z00.00 - Encounter for general adult medical examination without abnormal findings Plan: Labs ordered (2) Family hx-breast malignancy: Code(s): Z80.3 - Family history of malignant neoplasm of breast Plan: Mammo ordered (3) Morbid obesity: Code(s): E66.01 - Morbid (severe) obesity due to excess calories Plan: Educated on proper diet and portion sizes (4) HTN (hypertension): Code(s): I10 - Essential (primary) hypertension Plan: Pt will monitor her BP and send readings via portal Plan The patient agreed to the use of a medical science liaison for this encounter. Scribed for LUIS CARLOS Zhong by Bessy Burns medical science liaison, on 08/08/2023 at 13:45 EST. Orders: Orders Complete Blood Count Auto Diff Today Z00.00 - Encounter for general adult medical examination without abnormal findings Comprehensive [place]. Panel Fast Today Z00.00 - Encounter for general adult medical examination without abnormal findings TSH reflex Free T4 Today Z00.00 - Encounter for general adult medical examination without abnormal findings Lipid Panel Today Z00.00 - Encounter for general adult medical examination without abnormal findings MM screening mammo BI Today Z12.31 - Encounter for screening mammogram for malignant neoplasm of breast, Z80.3 - Family history of malignant neoplasm of breast UA CC w/rflx Micro + Cult Today Z00.00 - Encounter for general adult medical examination without abnormal findings Coding Level of Care Code Est Pt Prev Care 18-39y(23502) Diagnoses Physical exam Z00.00 Family hx-breast malignancy Z80.3 Morbid obesity E66.01 HTN (hypertension) I10
[2023-08-08 13:20] VITALS: PULSE 83; O2SAT 100; BMI 48.1
== END 2023-08-08 14:04 | disposition home or self-care (01) ==
PROVIDERS: PCP Nurse Practitioner Family; Visit Provider Nurse Practitioner Family
DX: Z00.00 Encounter for general adult medical examination without abnormal findings (principal); Z68.42 Body mass index [BMI] 45.0-49.9, adult; E66.01 Morbid (severe) obesity due to excess calories; Z80.3 Family history of malignant neoplasm of breast; I10 Essential (primary) hypertension
CPT/HCPCS: 99395

== ENCOUNTER 2023-08-30 09:49 | Outpatient (AMB) | payer OTHER, SELFPAY ==
[2023-08-30 09:54] VITALS: BMI 48.1
--- NOTE | 2023-08-30 09:54 | A.OFFVIS_ITS ---
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: Wool Hat Forming Machine Tender Present (Coreyyn) Allergies ciprofloxacin [From Cipro] Allergy (Severe, Verified 08/30/23 09:56) tachycardia, sob Sulfa (Sulfonamide Antibiotics) Allergy (Verified 08/30/23 09:56) rash, hives Medication List - Last Reconciled 08/30/23 by Ila Herman CNM buprenorphine-naloxone 8-2 mg film sublingual copper (ParaGard T 380A) intrauterine ferrous sulfate 325 mg PO BID 30 days omeprazole 20 mg PO DAILY propranolol ER 80 mg PO DAILY Is last menstrual period known: Yes Last menstrual period: 07/30/23 Post menopausal: No HPI HPI 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 I asked her what she was going to use for control instead as I saw that she had replaced the Mirena IUD and had it replaced with the ParaGard in previous visits and years she had cited previously that she did not like how she felt with the Mirena IU S and the hormones and she preferred how she felt with the ParaGard in. Today she said that she wanted the ParaGard out because she is trying to get off all medications and wants everything removed from inside of her that could possibly contribute to inflammation and she just wants to be on as little as possible she is on Suboxone between 4 and 8 mg a day managed by kenn[facility]. She says she is okay with being on her blood pressure medicine and the iron she says that she has been feeling very tired all the time and was started on the iron because of anemia. She says matter what she does she has gained weight she is working with her food plan in portions and does CrossFit 3 times a week and finds her joints are inflamed and swollen and she wants everything removed that could be contributing to any inflammation. She says that she can not understand why she is gaining weight because she eats practically nothing. She did not want her blood pressure to be taken at all because she said any time she approaches medical office her blood pressure goes up just because she is t hinking about it. In the discussion about what she would do instead of the ParaGard IUD, she said she would use condoms I asked her what she would do if she became she said that she and her would have to talk about it. I suggested that she may want to have a really clear discussion with herself 1st about what would happen for herself if she did become and I did cite weight and blood pressure as being challenges currently if she did become . [facility] Medical History (Updated 08/30/23 @ 12:50 by Ila Herman CNM) Tension headache Anxiety Lymphadenopathy Depression with anxiety Opioid abuse, in remission Heartburn Vulvar dermatitis No known health problems Surgical History History of foot surgery Family History Father ADHD Bipolar disorder Mother H/O: manic depressive disorder Anxiety Breast cancer Cervical cancer HTN (hypertension) Brother No problems noted. Sister No problems noted. Maternal Grandfather Stomach cancer Colon cancer High cholesterol Stroke Maternal Grandmother No problems noted. Paternal Grandmother Brain cancer Lung cancer Obese Paternal Grandfather No problems noted. Maternal Uncle Skin cancer Brother No problems noted. Sister No problems noted. Daughter No problems noted. Social History Alcohol intake: never Patient Tobacco Use Status: Never used Tobacco e-Cigarette/Vaping Use: Never Used service: No Current occupational status: employed Current occupation: [employer] Gender identity: Female Cognitive needs: No Hearing needs: No Vision needs: No Female Reproductive History Menstrual Age of Menarche: 11 Duration of menses: 6-7 days Date of last menstrual period: 07/30/23 control method: copper IUCD Total pregnancies: 5 Full term: 2 Number of Living Children: 2 Ab spontaneous: 3 Date of last pap smear: 09/27/20 (negative) History of abnormal pap smear: No Physical Exam Vital Signs: BMI result Body Mass Index 48.1 Assessment & Plan Assessment & Plan (1) Anemia: Code(s): D64.9 - Anemia, unspecified Category: Medical (2) Bilateral swelling of feet: Code(s): M79.89 - Other specified soft tissue disorders Category: Medical (3) HTN (hypertension): Code(s): I10 - Essential (primary) hypertension Category: Medical (4) control counseling: Comment: Presented to annual visits stating she wanted her ParaGard IUD to removed and she is thinking that it for year after full discussion options and issues involved with other health parameters, and patient stated plan to use condoms 100%, offered ParaGard removal but then patient decided to reschedule.... 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 I asked her what she was going to use for control instead as I saw that she had replaced the Mirena IUD and had it replaced with the ParaGard in previous visits and years she had cited previously that she did not like how she felt with the Mirena IU S and the hormones and she preferred how she felt with the ParaGard in. Today she said that she wanted the ParaGard out because she is trying to get off all medications and wants everything removed from inside of her that could possibly contribute to inflammation and she just wants to be on as little as possible she is on Suboxone between 4 and 8 mg a day managed by [facility]. She says she is okay with being on her blood pressure medicine and the iron she says that she has been feeling very tired all the time and was started on the iron because of anemia. She says no matter what she does she has gained weight she is working with her food plan and portions and does CrossFit 3 times a week and finds her joints are inflamed and swollen and she wants everything removed that could be contributing to any inflammation. She says that she can not understand why she is gaining weight because she eats practically nothing. She did not want her blood pressure to be taken at all because she said any time she approaches medical office her blood pressure goes up just because she is thinking about it. I shared that this is not uncommon but it still does not negate the elevated blood pressures. She said that she had been heavy most of her life and that she has not had any negative consequences from it, and I did mention that the blood pressure could be a consequence and that for any of us human beings that are overweight we may escape some medical problems for a while but eventually they do catch up with us. She says she was being checked for everything and so far the only problem was the anemia. In the discussion about what she would do instead of the ParaGard IUD, she said she would use condoms. I asked her what she would do if she became ,; she said that she and her would have to talk about it. I suggested that she may want to have a really clear discussion with herself 1st about what would happen for herself if she did become and I did cite weight and blood pressure as being challenges currently if she did become . She said that she would use condoms 100%. I did tell her that sometimes the ParaGard IUD can contribute to heavier periods, and therefore, her anemia.. Additionally, though when we as women gain more weight, there is a frequently a pattern of periods becoming very irregular, and can be missed and then having a period that is extremely heavy bleeding, which can end up requiring interventions that might include D and C's and transfusions, and then the recommended treatment is often a Mirena. I asked her if she was at all interested in weight management program and she said she might be, and asked me what I knew about it and I shared what knew and said I would give her a brochure if I had 1 (but I did not have any worn the office.) She told me that she was absolutely not interested any surgery but would be open to nutrition guidance etc.. I did share that I understood the program was fairly strict with its use of protein shakes and limitations of intake and guidelines.. In any case I did not have a brochure to deliver. When I asked her again if she wanted me to remove the ParaGard IUD after the above discussion, and she looked away and said she needed to think about it and appeared upset and decided to leave and reschedule.
== END 2023-08-30 10:48 | disposition home or self-care (01) ==
PROVIDERS: PCP Nurse Practitioner Family; Visit Provider Advanced Practice Midwife
DX: D64.9 Anemia, unspecified (principal); M79.89 Other specified soft tissue disorders; I10 Essential (primary) hypertension; Z30.09 Encounter for other general counseling and advice on contraception; F41.8 Other specified anxiety disorders; F11.11 Opioid abuse, in remission; E66.01 Morbid (severe) obesity due to excess calories
CPT/HCPCS: 99213

== ENCOUNTER → 2023-08-30 09:49 | Outpatient (BNVA) | payer OTHER, SELFPAY | PROVIDERS: PCP Nurse Practitioner Family; Visit Provider Advanced Practice Midwife ==

== ENCOUNTER 2023-11-25 13:29 | Outpatient (AMB) | payer OTHER, SELFPAY ==
--- NOTE | 2023-11-25 13:36 | MHC.PC.OV ---
Intake Visit Reasons: BP and med concerns Intake Note: Patient here to f/u on meds and would like to talk about lower extremity swelling. Allergies ciprofloxacin [From Cipro] Allergy (Severe, Verified 11/25/23 13:43) tachycardia, sob Sulfa (Sulfonamide Antibiotics) Allergy (Verified 11/25/23 13:43) rash, hives Medication List - Last Reconciled 11/25/23 by Farhan Rodgers, [employer] MANAGER- buprenorphine-naloxone 8-2 mg 4 film sublingual copper (ParaGard T 380A) intrauterine ferrous sulfate 325 mg PO BID 30 days hydrochlorothiazide 12.5 mg PO DAILY omeprazole 20 mg PO DAILY propranolol ER 80 mg PO DAILY semaglutide (weight loss) (Wegovy) 0.25 mg (0.5 mL) subcut QWEEK Tobacco use date assessed: 08/08/23 Dental Screening Dental Screen Date: 08/08/23 HPI BP and med concerns HPI Details ongoing edema: nonpitting, obesity. Pt reports by the end of the day, she notices the swelling to her ankles/lower legs. Pt has been to a outreach team member, eating correct, not noticing much difference in her weight/edema. Pt denies any CP, SOB, dizziness, fevers, chills, tenderness to BLE. Pt is also noted to be on suboxone? Still will get a echo, BNP, and EKG. Sending Wegovy for weight loss. [facility] Medical History (Updated 08/30/23 @ 12:50 by Ila Herman CNM) Tension headache Anxiety Lymphadenopathy Depression with anxiety Opioid abuse, in remission Heartburn Vulvar dermatitis No known health problems Surgical History History of foot surgery Family History Father ADHD Bipolar disorder Mother H/O: manic depressive disorder Anxiety Breast cancer Cervical cancer HTN (hypertension) Brother No problems noted. Sister No problems noted. Maternal Grandfather Stomach cancer Colon cancer High cholesterol Stroke Maternal Grandmother No problems noted. Paternal Grandmother Brain cancer Lung cancer Obese Paternal Grandfather No problems noted. Maternal Uncle Skin cancer Brother No problems noted. Sister No problems noted. Daughter No problems noted. Social History Alcohol intake: never Patient Tobacco Use Status: Never used Tobacco e-Cigarette/Vaping Use: Never Used service: No Current occupational status: employed Current occupation: [employer] Gender identity: Female Cognitive needs: No Hearing needs: No Vision needs: No Female Reproductive History Menstrual Age of Menarche: 11 Questionnaire PHQ-9 Over the last 2 weeks, how often have you been bothered by any of the following problems? 1. Little interest or pleasure in doing things: not at all 2. Feeling down, depressed, or hopeless: not at all 3. Trouble falling or staying asleep, or sleeping too much: several days 4. Feeling tired or having little energy: more than half the days 5. Poor appetite or overeating: several days 6. Feeling bad about yourself - or that you are a failure or have let yourself or your family down: several days 7. Trouble concentrating on things, such as reading the newspaper or watching television: several days 8. Moving or speaking so slowly that other people could have noticed. Or the opposite - being so fidgety or restless that you have been moving around a lot more than usual: not at all 9. Thoughts that you would be better off or of hurting yourself in some way: not at all Total score: 6 Source: Developed by Drs. Musa Lott, Darby Dutton, Michelet Miranda and colleagues, with an educational trini from [employer]. Thrive Questionnaire I am a: Patient What is your living situation today?: I have a steady place to live Within the past 12 months, did the food you bought not last and you didn't have the money to get more?: I choose not to answer this question Within the past 12 months, did you worry whether your food would run out before you got money to buy more?: I choose not to answer this question Do you have trouble paying for medicines?: I choose not to answer this question Do you have trouble getting transportation to medical appointments?: I choose not to answer this question Do you have trouble paying your heating and electricity bill?: I choose not to answer this question Do you have trouble taking care of your child, family member or friend?: No Do you have trouble with day-to-day activities such as bathing, preparing meals, shopping, managing finances, etc.?: No Are you currently unemployed and looking for a job?: No Are you interested in more education?: No Please select the resources that you would like help with: Housing/Prison Currently or been in a relationship where the following occur: No concerns reported THRIVE Score: 0 AUDIT C Alcohol Use Questionnaire (AUDIT-C) 1. How often do you have a drink containing alcohol?: Never Total Score: 0 MINA-7 AMB Questionnaire MINA-7 Date MINA - 7 assessed: 08/08/23 Feeling nervous, anxious, or on edge: 1 = Several days Not being able to stop or control worryin = Several days Worrying too much about different things: 1 = Several days Trouble relaxin = Several days Being so restless that it is hard to sit still: 1 = Several days Becoming easily annoyed or irritable: 1 = Several days Feeling afraid as if something awful might happen: 1 = Several days Total MINA-7 score (0-4 normal; 5-9 mild; 10-14 moderate; 15-21 severe): 7 Source: Developed by Drs. Musa Lott, Darby Dutton, Michelet Miranda and colleagues, with an educational trini from [employer]. Physical exam (Primary Care) Tobacco/Smoking Status: Tobacco use Status Tobacco use date assessed 08/08/23 11/25/23 13:37 Patient Tobacco Use Status Never used Tobacco 11/25/23 13:37 e-Cigarette/Vaping Use Never Used 11/25/23 13:37 PHQ-9: PHQ-9 Score PHQ-9: Total score 6 11/25/23 13:37 Currently or been in a relationship where the following occur: No concerns reported Const General: cooperative, healthy appearing and comfortable Nutritional Appearance: obese Resp Effort & Inspection: normal respiratory effort Auscultation: clear to auscultation bilaterally Cardio Rate: regular rate Rhythm: regular rhythm Heart sounds: S1 normal heart sound present and S2 normal heart sound present Extrem Other: trace to BLE Assessment and Plan Assessment & Plan (1) Bilateral swelling of feet: Code(s): M79.89 - Other specified soft tissue disorders Plan: labs, echo, watch processed foods (2) Morbid obesity: Code(s): E66.01 - Morbid (severe) obesity due to excess calories Plan: wegovy Orders: Orders B Type Natriuretic Peptide Today E66.01 - Morbid (severe) obesity due to excess calories, M79.89 - Other specified soft tissue disorders CA echo transthoracic complete Today E66.01 - Morbid (severe) obesity due to excess calories, M79.89 - Other specified soft tissue disorders TSH reflex Free T4 Today E66.01 - Morbid (severe) obesity due to excess calories, M79.89 - Other specified soft tissue disorders UA CC w/rflx Micro + Cult Today E66.01 - Morbid (severe) obesity due to excess calories, M79.89 - Other specified soft tissue disorders Complete Blood Count Auto Diff Today E66.01 - Morbid (severe) obesity due to excess calories, M79.89 - Other specified soft tissue disorders Comprehensive Ethel. Panel Fast Today E66.01 - Morbid (severe) obesity due to excess calories, M79.89 - Other specified soft tissue disorders Lipid Panel Today E66.01 - Morbid (severe) obesity due to excess calories, M79.89 - Other specified soft tissue disorders Medications: New semaglutide (weight loss) (Dilan) administer weeks 1 through 4 of therapy 0.25 mg (0.5 mL) subcut QWEEK 2 mL 1RF Coding Level of Care Code Est Pt Level 3 (04748) Diagnoses Bilateral swelling of feet M79.89 Morbid obesity E66.01
== END 2023-11-25 14:39 | disposition home or self-care (01) ==
PROVIDERS: PCP Nurse Practitioner Family; Visit Provider Nurse Practitioner Family
DX: M79.89 Other specified soft tissue disorders (principal); E66.01 Morbid (severe) obesity due to excess calories
CPT/HCPCS: 99214

== ENCOUNTER 2023-12-03 11:10 | Outpatient (AMB) | payer OTHER, SELFPAY ==
[2023-12-03 11:14] VITALS: PULSE 100; TEMP 37; O2SAT 96; BMI 48.1
--- NOTE | 2023-12-03 11:14 | MHC.OFFWIV ---
Intake Vital Signs 12/03/23 11:14 12/03/23 11:43 Height 5 ft 7 in Weight 307 lb BMI 48.1 Pulse 100 94 Pulse Source Pulse Oximeter Pulse Oximeter Temp 98.6 F Temp Source Oral Pulse Oximetry (%) 96 97 Oxygen Delivery Method Room Air Room Air Intake Visit Reasons: EP Cough, Sore throat, congestion, headache Intake Note: pt is here for cough, sore throat, congestion and headache Patient Tobacco Use Status: Never used Tobacco Allergies ciprofloxacin [From Cipro] Allergy (Severe, Verified 12/03/23 11:14) tachycardia, sob Sulfa (Sulfonamide Antibiotics) Allergy (Verified 12/03/23 11:14) rash, hives Do you need a note to return to daycare/school/sports/work: No HPI HPI Comments History of Present Illness Details 32-year-old female complaining of sore throat, pain with swallowing, headache, head congestion, chest congestion, ear pain, left side greater than right x4 days. She has developed a slight dry cough over the last day. She denies any fevers shortness of breath or history of asthma or COPD. She states her is also sick and went to an urgent care last Saturday where he was diagnosed with pneumonia and given Augmentin which has been taking and is getting better. She has been using Tylenol and ibuprofen for her symptoms with mild relief. [facility] Medical History (Updated 12/03/23 @ 11:41 by Vilma Britt PA-C) Tension headache Anxiety Lymphadenopathy Depression with anxiety Opioid abuse, in remission Heartburn Vulvar dermatitis No known health problems Surgical History History of foot surgery Family History Father ADHD Bipolar disorder Mother H/O: manic depressive disorder Anxiety Breast cancer Cervical cancer HTN (hypertension) Brother No problems noted. Sister No problems noted. Maternal Grandfather Stomach cancer Colon cancer High cholesterol Stroke Maternal Grandmother No problems noted. Paternal Grandmother Brain cancer Lung cancer Obese Paternal Grandfather No problems noted. Maternal Uncle Skin cancer Brother No problems noted. Sister No problems noted. Daughter No problems noted. Social History Alcohol intake: never Patient Tobacco Use Status: Never used Tobacco e-Cigarette/Vaping Use: Never Used service: No Current occupational status: employed Current occupation: [employer] Gender identity: Female Cognitive needs: No Hearing needs: No Vision needs: No Female Reproductive History Menstrual Age of Menarche: 11 Review of Systems Const All systems reviewed & are unremarkable except as noted in HPI and below Physical Exam Vital Signs: Last Vital Signs Temp 98.6 F 12/03/23 11:14 Pulse 100 12/03/23 11:14 Pulse Ox 96 12/03/23 11:14 Oxygen Delivery Method Room Air 12/03/23 11:14 BMI result Body Mass Index 48.1 Const General: cooperative, healthy appearing, comfortable and no acute distress Orientation/consciousness: patient oriented x3 Limitations: no limitations HEENT Head: Yes normal to inspection Ears: hearing grossly normal bilaterally, external ears normal and TM's normal bilaterally General nose exam: Normal external nose present, Normal nares present and No nasal discharge present Face and sinus: Yes normal facial exam and Yes sinuses nontender Mouth: Normal oral and palatal mucosa present and moist mucous membranes Throat: Yes tonsils normal, Yes uvula midline and Yes posterior oropharynx abnormal (Erythema, exudate on the right side) Eyes General: appearance normal, both eyes and all related structures Neck Neck: Yes normal visual inspection Resp Effort & Inspection: normal respiratory effort, able to speak in complete sentences, Actively coughing, no respiratory distress, not tachypneic, no tripod positioning and no use of accessory muscles Auscultation: clear to auscultation bilaterally Cardio Rate: regular rate Rhythm: regular rhythm Heart sounds: normal S1 and S2 Skin General skin exam: no rashes or lesions noted Neuro General: patient oriented x3 Extrem General: Yes normal to inspection and Yes no clubbing, cyanosis or edema Results AMB Rapid Strep AMB Rapid Strep Negative Last Edit by Nael Ridley CMA on 12/03/23 11:31 Assessment & Plan Assessment & Plan (1) Strep pharyngitis: Code(s): J02.0 - Streptococcal pharyngitis Plan: Center score 3, rapid strep negative but we will treat based on score. Recommended [id number] medications to treat symptoms, instead of work for 2-3 days until feeling better and no fever for 24 hours Plan See above Orders: Orders AMB Rapid Strep Screen Today Z13.9 - Encounter for screening, unspecified Medications: New amoxicillin 500 mg PO BID 20 tabs 0RF Coding Level of Care Code Est Pt Level 3 (58120) Diagnoses Strep pharyngitis J02.0
[2023-12-03 11:43] VITALS: PULSE 94; O2SAT 97
== END 2023-12-03 11:48 | disposition home or self-care (01) ==
PROVIDERS: PCP Nurse Practitioner Family; Visit Provider Physician Assistant
DX: J02.0 Streptococcal pharyngitis (principal); Z13.9 Encounter for screening, unspecified
CPT/HCPCS: 87880; 99213

== ENCOUNTER 2023-12-21 10:48 | Outpatient (REF) | payer OTHER, SELFPAY ==
[2023-12-21 12:53] LABS: MANUAL DIFF FLAG NO
[2023-12-21 12:56] LABS: Basophils Percent Auto 0.5 % (0-2); Eosinophils Absolute Auto 0.2 X10*3/uL (0.0-0.4); Eosinophils Percent Auto 3.2 % (0-4); Hematocrit 33.9 % (37.0-47.0); Hemoglobin 11.4 g/dl (12.0-16.0); Imm Gran Abs Auto 0.01 X10*3/uL (0.00-0.03); Imm Gran Pct Auto 0.2 % (0.0-0.4); Lymphocytes Absolute Auto 1.7 X10*3/uL (1.2-4.9); Lymphocytes Percent Auto 25.9 % (20-40); Mean Corpuscular HGB Conc 33.6 g/dl (31.0-35.0); Mean Corpuscular Hemoglobin 28.6 pg (27.0-33.0); Mean Platelet Volume 8.9 fL (9.4-12.3); Monocytes Absolute Auto 0.5 X10*3/uL (0.1-1.2); Neutrophils Absolute Auto 4.2 x10*3/uL (2.0-8.3); Neutrophils Percent Auto 63.2 % (45-73); Platelet Count 312 X10*3/uL (160-400); Red Blood Count 3.99 X10*6/uL (4.20-5.50); Red Cell Distribution Width 13.6 % (11.0-16.0); White Blood Count 6.6 X10*3/uL (4.8-10.8)
[2023-12-21 13:12] LABS: Appearance Urine Clear; Color Urine Yellow; Glucose Urine UA Negative (Negative); Leukocyte Esterase Urine Small (1+) (Negative); Nitrite Urine Negative (Negative); Specific Gravity - Urine 1.015 (1.005-1.025); UMIC TRIGGER UACC YES; Urine Blood Moderate (2+) (Negative); Urine Ketones Negative (Negative); Urine Protein Negative (Neg-Trace)
[2023-12-21 13:19] LABS: B Type Natriuretic Peptide 16 pg/mL (<100)
[2023-12-21 13:20] LABS: Alanine Aminotransferase 22 U/L (0-31); Albumin Level 3.8 g/dL (3.5-5.0); Alkaline Phosphatase 67 U/L (39-117); Anion Gap 13 (12-20); Aspartate Amino Transferase 19 U/L (5-31); Bilirubin Total 0.4 mg/dL (0.0-1.0); Blood Urea Nitrogen 14 mg/dL (9-16); Calcium 9.4 mg/dL (8.4-10.2); Carbon Dioxide 27 mmol/L (22-29); Chloride 104 mmol/L (96-108); Cholesterol 158 mg/dL (<200); Estimated Glomerular Filt Rate > 60; Glucose Fasting 91 mg/dL (60-99); HDL Cholesterol 53 mg/dL (>40); LDL Cholesterol Calculated 94 mg/dL (<100); Potassium 3.6 mmol/L (3.3-5.1); Sodium 140 mmol/L (135-145); Total Protein 7.4 g/dL (6.5-8.0); Triglycerides 55 mg/dL (<150)
[2023-12-21 13:27] LABS: Bacteria Urine None Seen (None Seen); Hyaline Casts Urine 0-2 /LPF (0-2); UACC Culture Trigger YES
[2023-12-21 13:37] LABS: TSH reflex Free T4 5.62 uIU/mL (0.32-4.0)
[2023-12-21 14:38] LABS: Free T4 (Free Thyroxine) 1.07 ng/dL (0.71-1.85)
== END 2023-12-21 10:49 | disposition home or self-care (01) ==
LOC: HO.HMGCLDS 10:48
PROVIDERS: PCP Nurse Practitioner Family; Visit Provider Nurse Practitioner Family
DX: Z00.00 Encounter for general adult medical examination without abnormal findings (principal); E66.01 Morbid (severe) obesity due to excess calories; M79.89 Other specified soft tissue disorders; R79.89 Other specified abnormal findings of blood chemistry
CPT/HCPCS: 36415; 80053; 80061; 81001; 81003; 83880; 84439; 84443; 85025; 87086

== ENCOUNTER 2023-12-28 11:17 | Outpatient (REF) | payer OTHER, SELFPAY ==
[2023-12-28 12:46] LABS: MANUAL DIFF FLAG NO
[2023-12-28 12:49] LABS: Appearance Urine Clear; Color Urine Yellow; Glucose Urine UA Negative (Negative); Leukocyte Esterase Urine Trace (Negative); Nitrite Urine Negative (Negative); PH 7.5 (5.0-9.0); Specific Gravity - Urine 1.015 (1.005-1.025); UMIC TRIGGER UACC YES; Urine Blood Negative (Negative); Urine Ketones Negative (Negative); Urine Protein Negative (Neg-Trace)
[2023-12-28 12:51] LABS: Bacteria Urine None Seen (None Seen); Hyaline Casts Urine 0-2 /LPF (0-2); RBC Urine 0-2 /HPF (0-2); WBC Urine 0-5 /HPF (0-5)
[2023-12-28 12:55] LABS: Basophils Percent Auto 0.5 % (0-2); Eosinophils Absolute Auto 0.2 X10*3/uL (0.0-0.4); Eosinophils Percent Auto 2.7 % (0-4); Hematocrit 36.1 % (37.0-47.0); Hemoglobin 12.1 g/dl (12.0-16.0); Imm Gran Abs Auto 0.03 X10*3/uL (0.00-0.03); Imm Gran Pct Auto 0.5 % (0.0-0.4); Lymphocytes Absolute Auto 1.5 X10*3/uL (1.2-4.9); Lymphocytes Percent Auto 23.2 % (20-40); Mean Corpuscular HGB Conc 33.5 g/dl (31.0-35.0); Mean Corpuscular Hemoglobin 28.9 pg (27.0-33.0); Mean Corpuscular Volume 86.2 fL (80.0-98.0); Mean Platelet Volume 8.9 fL (9.4-12.3); Monocytes Absolute Auto 0.4 X10*3/uL (0.1-1.2); Monocytes Percent Auto 6.2 % (2-11); Neutrophils Absolute Auto 4.2 x10*3/uL (2.0-8.3); Neutrophils Percent Auto 66.9 % (45-73); Platelet Count 294 X10*3/uL (160-400); Red Blood Count 4.19 X10*6/uL (4.20-5.50); White Blood Count 6.3 X10*3/uL (4.8-10.8)
[2023-12-28 13:16] LABS: Alanine Aminotransferase 31 U/L (0-31); Albumin Level 3.9 g/dL (3.5-5.0); Alkaline Phosphatase 64 U/L (39-117); Anion Gap 13 (12-20); Aspartate Amino Transferase 31 U/L (5-31); Bilirubin Total 0.4 mg/dL (0.0-1.0); Blood Urea Nitrogen 12 mg/dL (9-16); Calcium 9.8 mg/dL (8.4-10.2); Carbon Dioxide 25 mmol/L (22-29); Chloride 107 mmol/L (96-108); Cholesterol 162 mg/dL (<200); Estimated Glomerular Filt Rate > 60; Glucose Fasting 90 mg/dL (60-99); HDL Cholesterol 59 mg/dL (>40); LDL Cholesterol Calculated 91 mg/dL (<100); Potassium 4.1 mmol/L (3.3-5.1); Sodium 141 mmol/L (135-145); Total Protein 7.5 g/dL (6.5-8.0); Triglycerides 62 mg/dL (<150)
[2023-12-28 13:30] LABS: TSH reflex Free T4 3.36 uIU/mL (0.32-4.0)
[2023-12-30 18:14] LABS: Thyroid Peroxidase Antibodies 522 IU/mL (<9)
== END 2023-12-28 11:18 | disposition home or self-care (01) ==
LOC: HO.HMGCLDS 11:17
PROVIDERS: PCP Nurse Practitioner Family; Visit Provider Nurse Practitioner Family
DX: Z00.00 Encounter for general adult medical examination without abnormal findings (principal); E66.01 Morbid (severe) obesity due to excess calories; M79.89 Other specified soft tissue disorders; R79.89 Other specified abnormal findings of blood chemistry
CPT/HCPCS: 36415; 80053; 80061; 81001; 84443; 85025; 86376

== ENCOUNTER → 2024-01-30 14:47 | Outpatient (BNVA) | payer OTHER, SELFPAY | PROVIDERS: PCP Nurse Practitioner Family; Visit Provider Nurse Practitioner Family | DX: Z01.89 Encounter for other specified special examinations (principal) ==

== ENCOUNTER → 2024-03-06 11:27 | Outpatient (BNVA) | payer OTHER, SELFPAY | PROVIDERS: PCP Nurse Practitioner Family ==

== ENCOUNTER 2024-03-25 12:27 | Outpatient (AMB) | payer OTHER, SELFPAY ==
[2024-03-25 12:31] VITALS: BP 122/80; PULSE 90; O2SAT 99; BMI 47.7
--- NOTE | 2024-03-25 12:31 | A.OFFPC_ITS ---
Vital Signs 03/25/24 12:31 Height 5 ft 7 in Weight 304 lb 6 oz BMI 47.7 BP 122/80 Blood Pressure Location Rt brachial Position Sitting Pulse 90 Pulse Source Pulse Oximeter Pulse Oximetry (%) 99 Oxygen Delivery Method Room Air Intake Visit Reasons: 4 mon f/u Intake Note: pt is here for 4 month f/up Plate Embosser Required: No Allergies ciprofloxacin [From Cipro] Allergy (Severe, Verified 03/25/24 15:32) tachycardia, sob Sulfa (Sulfonamide Antibiotics) Allergy (Verified 03/25/24 15:32) rash, hives Medication List - Last Reconciled 03/25/24 by JIGNA De La Cruz-LEODAN buprenorphine-naloxone 8-2 mg 4 film sublingual copper (ParaGard T 380A) intrauterine ferrous sulfate 325 mg PO BID 30 days hydrochlorothiazide 12.5 mg PO DAILY levothyroxine 25 mcg PO DAILY propranolol ER 60 mg PO DAILY semaglutide (weight loss) (Wegovy) 0.25 mg (0.5 mL) subcut QWEEK Tobacco use date assessed: 08/08/23 Dental Screening Dental Screen Date: 08/08/23 HPI 4 mon f/u HPI Details Pt c/o increased fatigue. She believes this is related to her propranolol. Pt has tried taking this at night which has not helped. Will decrease from 80mg to 60mg. Pt's TSH is improving. She was started on wegovy which was just approved by insurance today. Denies fever, chills, and dizziness. [facility] Medical History Tension headache Anxiety Lymphadenopathy Depression with anxiety Opioid abuse, in remission Heartburn Vulvar dermatitis No known health problems Surgical History History of foot surgery Family History Father ADHD Bipolar disorder Mother H/O: manic depressive disorder Anxiety Breast cancer Cervical cancer HTN (hypertension) Brother No problems noted. Sister No problems noted. Maternal Grandfather Stomach cancer Colon cancer High cholesterol Stroke Maternal Grandmother No problems noted. Paternal Grandmother Brain cancer Lung cancer Obese Paternal Grandfather No problems noted. Maternal Uncle Skin cancer Brother No problems noted. Sister No problems noted. Daughter No problems noted. Social History (Reviewed 03/25/24 @ 15:31 by Farhan Rodgers [facility]) Alcohol intake: never Patient Tobacco Use Status: Never used Tobacco e-Cigarette/Vaping Use: Never Used service: No Current occupational status: employed Current occupation: [employer] Gender identity: Female Cognitive needs: No Hearing needs: No Vision needs: No Female Reproductive History Menstrual Age of Menarche: 11 Questionnaire Thrive Questionnaire Date Thrive assessed: 03/25/24 I am a: Patient What is your living situation today?: I have a steady place to live Within the past 12 months, did the food you bought not last and you didn't have the money to get more?: I choose not to answer this question Within the past 12 months, did you worry whether your food would run out before you got money to buy more?: I choose not to answer this question Do you have trouble paying for medicines?: I choose not to answer this question Do you have trouble getting transportation to medical appointments?: I choose not to answer this question Do you have trouble paying your heating and electricity bill?: I choose not to answer this question Do you have trouble taking care of your child, family member or friend?: No Do you have trouble with day-to-day activities such as bathing, preparing meals, shopping, managing finances, etc.?: No Are you currently unemployed and looking for a job?: No Are you interested in more education?: No Please select the resources that you would like help with: None Currently or been in a relationship where the following occur: No concerns reported THRIVE Score: 0 AUDIT C Alcohol Use Questionnaire (AUDIT-C) 1. How often do you have a drink containing alcohol?: Never 3. How often do you have six or more drinks on one occasion?: Never Total Score: 0 Score Reviewed/Action Taken: Yes MINA-7 AMB Questionnaire MINA-7 Date MINA - 7 assessed: 03/25/24 Feeling nervous, anxious, or on edge: 1 = Several days Not being able to stop or control worryin = Several days Worrying too much about different things: 1 = Several days Trouble relaxin = Several days Being so restless that it is hard to sit still: 1 = Several days Becoming easily annoyed or irritable: 1 = Several days Feeling afraid as if something awful might happen: 1 = Several days Total MINA-7 score (0-4 normal; 5-9 mild; 10-14 moderate; 15-21 severe): 7 Source: Developed by Drs. Musa Lott, Darby Dutton, Michelet Miranda and colleagues, with an educational trini from [employer]. MINA-7 Assessment Billing MINA-7 Assessment Tool: MINA-7 Assessment 38188 Review of Systems Const Reports as per HPI Physical exam (Primary Care) Vital Signs: Last Vital Signs Pulse 90 03/25/24 12:31 BP 122/80 03/25/24 12:31 Pulse Ox 99 03/25/24 12:31 Oxygen Delivery Method Room Air 03/25/24 12:31 BMI result Body Mass Index 47.7 Tobacco/Smoking Status: Tobacco use Status Tobacco use date assessed 08/08/23 03/25/24 12:35 Patient Tobacco Use Status Never used Tobacco 03/25/24 12:35 e-Cigarette/Vaping Use Never Used 03/25/24 12:35 Thrive Assessment: Date of Thrive Assessment Date Thrive assessed 03/25/24 03/25/24 12:35 Currently or been in a relationship where the following occur: No concerns reported Const General: cooperative Nutritional Appearance: obese morbidly obese Orientation/consciousness: patient oriented x3 HENMT Other: cerumen noted to right ear, after ear lavage TM easily seen Resp Effort & Inspection: normal respiratory effort Auscultation: clear to auscultation bilaterally Cardio Rate: regular rate Rhythm: regular rhythm Heart sounds: S1 normal heart sound present and S2 normal heart sound present Neuro General: patient oriented x3 Psych Appearance: grossly normal Mental Status: mental status grossly normal Speech and movement: Normal speech and movement present Affect: normal affect Attitude: cooperative Thought process: Normal thought process present Thought content: Normal thought content present Insight: Good insight present (Psych) Judgement: Good judgement present (Psych) Office Procedures Cerumen Removal From which ear canal was the cerumen removed: right Removal: irrigation Notes: patient tolerated procedure well 40314-Ecy Irrigation/Lavage Coding Level of Care Code Est Pt Level 3 (79199) Diagnoses Morbid obesity E66.01 Elevated TSH R79.89 Excessive cerumen in right ear canal H61.21 CPT Codes Office Procedure - CPT: 90229-Rvn Irrigation/Lavage ([id number]) Additional Codes MINA-7 Assessment Billing - MINA-7 Assessment Tool: MINA-7 Assessment 43430 ([id number]) Assessment & Plan Assessment & Plan (1) Morbid obesity: Code(s): E66.01 - Morbid (severe) obesity due to excess calories Category: Medical Plan: Wegeorgevy has been approved, labs ordered (2) Elevated TSH: Code(s): R79.89 - Other specified abnormal findings of blood chemistry Category: Medical Plan: Labs ordered (3) Excessive cerumen in right ear canal: Code(s): H61.21 - Impacted cerumen, right ear Category: Medical Plan: Ear flushed in office today Plan The patient agreed to the use of a biomedical electronics technician for this encounter. Scribed for JIGNA Zhong-LEODAN by Bessy Burns biomedical electronics technician, on 03/25/2024 at 13:00 EST. Orders: Orders Complete Blood Count Auto Diff Today E66.01 - Morbid (severe) obesity due to excess calories, R79.89 - Other specified abnormal findings of blood chemistry TSH reflex Free T4 Today E66.01 - Morbid (severe) obesity due to excess calories, R79.89 - Other specified abnormal findings of blood chemistry Comprehensive [place]. Panel Fast Today E66.01 - Morbid (severe) obesity due to excess calories, R79.89 - Other specified abnormal findings of blood chemistry UA CC w/rflx Micro + Cult Today E66.01 - Morbid (severe) obesity due to excess calories, R79.89 - Other specified abnormal findings of blood chemistry Medications: Changed From propranolol ER 80 mg PO DAILY 90 caps 1RF To propranolol ER 60 mg PO DAILY 90 caps 1RF
== END 2024-03-25 13:33 | disposition home or self-care (01) ==
PROVIDERS: PCP Nurse Practitioner Family; Visit Provider Nurse Practitioner Family
DX: R79.89 Other specified abnormal findings of blood chemistry (principal); E66.01 Morbid (severe) obesity due to excess calories; Z68.42 Body mass index [BMI] 45.0-49.9, adult; H61.21 Impacted cerumen, right ear

== ENCOUNTER → 2024-03-25 12:27 | Outpatient (BNVA) | payer OTHER, SELFPAY | PROVIDERS: PCP Nurse Practitioner Family; Visit Provider Nurse Practitioner Family | DX: H61.21 Impacted cerumen, right ear (principal); R79.89 Other specified abnormal findings of blood chemistry; E66.01 Morbid (severe) obesity due to excess calories; Z68.42 Body mass index [BMI] 45.0-49.9, adult | CPT/HCPCS: 69209; 96127 ==

== ENCOUNTER 2024-05-20 10:31 | Outpatient (AMB) | payer OTHER, SELFPAY ==
[2024-05-20 10:33] VITALS: BMI 46.8
--- NOTE | 2024-05-20 10:33 | MHC.OFFVIS ---
Vital Signs 05/20/24 10:33 Height 5 ft 7 in Weight 299 lb BMI 46.8 Intake Visit Reasons: BC Consult/Hormones ?'s Intake Note: Patient requests BP done at end of visit Automotive Technician Instructor: Automotive Technician Instructor Present Allergies ciprofloxacin [From Cipro] Allergy (Severe, Verified 05/20/24 10:33) tachycardia, sob Sulfa (Sulfonamide Antibiotics) Allergy (Verified 05/20/24 10:33) rash, hives Is last menstrual period known: Yes Last menstrual period: 05/01/24 HPI Comments Details: Patient is here today for a consult due to concerns with her hormones. She admits to having dark coarse facial hair growth over the last year. Current ParaGard user, has monthly menses x5d, timing of cycle have shifted over the last 3 months. She is wondering if she could have a copper reaction. She reports her moods have change with crying all the time, and some brain fog. She feels she is pre-menopausal. Admits to a healthy diet, with increased exercise. Has been clean and sober for 11 year, and denies smoking. Has a cardiology workup next week, reports lower leg edema and inflammation more so around her ankles, has some leg varicosities. Recent use of Zepbound for weight loss. History of anemia currently taking Ila Bette liquid vitamins due her ability to tolerate iron due to constipation. Has concerns for ears/skin-itchy and dry, dry eyes. Labs: 12/21/23=5.62, repeat 12/28/23= 3.36. Has tried the Implanon in the past and felt suicidal after its use, pills- she would forget, Mirena change to last year, she feels overall better with her ParaGard. Family history of ovarian cancer and breast cancer with her mom, unknown if she has had BRCA testing patient is not in contact. Currently her sister has high-risk ovarian classification, they are monitoring. [facility] Medical History (Updated 05/20/24 @ 13:16 by Kristen Mcpherson CNM) Hirsutism UTI (urinary tract infection) FH: breast cancer in first degree relative Tension headache Anxiety Lymphadenopathy Depression with anxiety Opioid abuse, in remission Heartburn Vulvar dermatitis No known health problems Surgical History History of foot surgery Family History Father ADHD Bipolar disorder Mother H/O: manic depressive disorder Anxiety Breast cancer Cervical cancer HTN (hypertension) Brother No problems noted. Sister No problems noted. Maternal Grandfather Stomach cancer Colon cancer High cholesterol Stroke Maternal Grandmother No problems noted. Paternal Grandmother Brain cancer Lung cancer Obese Paternal Grandfather No problems noted. Maternal Uncle Skin cancer Brother No problems noted. Sister No problems noted. Daughter No problems noted. Social History Alcohol intake: never Patient Tobacco Use Status: Never used Tobacco e-Cigarette/Vaping Use: Never Used service: No Current occupational status: employed Current occupation: [employer] Gender identity: Female Cognitive needs: No Hearing needs: No Vision needs: No Female Reproductive History Menstrual Age of Menarche: 11 Duration of menses: 3-5 days Date of last menstrual period: 05/01/24 control method: copper IUCD (Paragard 11/2020) Review of Systems Const All systems reviewed & are unremarkable except as noted in HPI and below Endo Reports no additional complaints Physical Exam Vital Signs: BMI result Body Mass Index 46.8 Const General: cooperative, healthy appearing and no acute distress Extrem Other: Several varicosities of lower legs Psych Appearance: well kempt Attitude: cooperative Thought process: Normal thought process present Assessment & Plan Assessment & Plan (1) FH: breast cancer in first degree relative: Code(s): Z80.3 - Family history of malignant neoplasm of breast Category: Medical (2) Hirsutism: Code(s): L68.0 - Hirsutism Category: Medical (3) Family hx-breast malignancy: Code(s): Z80.3 - Family history of malignant neoplasm of breast Category: Medical Plan Discussed: Workup for PCOS-also do have her complete her PCP labs which are fasting and include her TSH level. Follow up discussion on hormones and plan of care at her next visit. Referral placed to Dr. Langston's office for BRCA screening/testing. Continue with ParaGard use for now. Continue with healthy diet and regular exercise. Schedule annual exam for August of 2024. The patient expressed understanding and agreement with the plan of care. All of her questions and concerns were addressed to the best of my ability. This note is constructed using voice recognition software. While every effort has been made to ensure accuracy, roving machine operator errors may have been included. Orders: Orders MM tomosynthesis screening BI Today Z12.31 - Encounter for screening mammogram for malignant neoplasm of breast 15 Hydroxyprogesterone Today L68.0 - Hirsutism, N92.6 - Irregular menstruation, unspecified Prolactin Today L68.0 - Hirsutism, N92.6 - Irregular menstruation, unspecified US pelvic and transvaginal Today L68.0 - Hirsutism, N93.9 - Abnormal uterine and vaginal bleeding, unspecified Testosterone, Free/Total Today L68.0 - Hirsutism, N92.6 - Irregular menstruation, unspecified DHEA Sulfate Today L68.0 - Hirsutism, N92.6 - Irregular menstruation, unspecified Referrals Breast Surgery Referral Z80.3 - Family history of malignant neoplasm of breast Coding Level of Care Code Est Pt Level 3 (79979) Diagnoses FH: breast cancer in first degree relative Z80.3 Hirsutism L68.0 Family hx-breast malignancy Z80.3
== END 2024-05-20 11:44 | disposition home or self-care (01) ==
PROVIDERS: PCP Nurse Practitioner Family; Visit Provider Advanced Practice Midwife
DX: L68.0 Hirsutism (principal); Z80.3 Family history of malignant neoplasm of breast
CPT/HCPCS: 99214

== ENCOUNTER → 2024-05-20 10:31 | Outpatient (BNVA) | payer OTHER, SELFPAY | PROVIDERS: PCP Nurse Practitioner Family; Visit Provider Advanced Practice Midwife ==

== ENCOUNTER → 2024-05-27 14:47 | Outpatient (REF) | payer OTHER, SELFPAY ==
--- NOTE | 2024-05-27 15:03 | CA_ITS ---
Transthoracic Echocardiogram Patient (Last, First, Middle): Shreya Holden, Gender: Female Date of : 1990 Age: 33 Procedure Date: 05/27/2024 Procedure Type: Transthoracic Echocardiogram Location: OP Height: 170.18 cm Weight: 135.63 kg BSA: 2.40 m2 Heart Rate: 98 bpm BP: 118 / 74 mmHg Magnetic Healer: SB Referring MD: Farhan Rodgers [facility] Second Operator: Polo Flanagan MD Symptoms: E66.01 - Morbid (severe) obesity due to excess calories Study Quality: Fair ECG Rhythm: Sinus Conclusions: - Essentially normal study Findings Procedure Information The quality of the study was technically difficult. The study quality is limited by patients body habitus. Left Ventricle Normal left ventricular size, thickness, and systolic function. The visually estimated ejection fraction is between 65-70%. Spectral Doppler is indicative of a normal filling pattern. Right Ventricle Normal right ventricular cavity size and systolic function. Atria The left atrium is likely dilated. There is no evidence of interatrial shunt. The right atrium was not well visualized. Aortic Valve Normal aortic valve structure and function. There is no aortic valve stenosis. There is no aortic valve regurgitation. Mitral Valve Normal mitral valve structure and function. There is trace mitral valve regurgitation. There is no mitral valve stenosis. Pulmonic Valve The pulmonic valve was not well visualized. Tricuspid Valve Likely normal tricuspid valve structure and function. Tricuspid regurgitation envelope is inadequate for calculation of right ventricular systolic pressure. Normal right atrial pressure. Great Vessels All visible segments of the aorta are normal in size. The pulmonary artery was not well visualized. There is no dilatation of the ascending aorta measuring 3.20 cm. Venous The inferior vena cava is normal in size. Pericardium/Pleural There is no evidence of pericardial effusion. Prior Study Comparison No prior study available for comparison. Measurements 2D Linear Measurements IVSd: 0.62 0.6-0.9/0.6-1.0 cm LVIDd: 5.41 3.9-5.3/4.2-5.9 cm LVIDd Index: 2.25 2.4-3.2/2.2-3.1 cm/m2 LVIDs: 3.50 2.0-3.6 cm LVPWd: 0.72 0.7-1.1 cm LA Diam: 3.90 2.7-3.8/3.0-4.0 cm LAIDs Index: 1.63 1.5-2.3 cm/m2 LV Mass: 155.03 67-162/88-224 g LV Mass Index: 64.60 43-95/49-115 g/m2 LVOT Diam: 2.20 3.0+(-)1.3 cm 2D Systolic Function EF 4C: 73.30 >55% EF 2C: 62.10 >55% EF BiP: 69.30 >55% Mitral Valve MV Pk E: 0.83 MV PK A: 0.84 MV Decel Time: 180.00 E/A: 1.00 E'Lateral: 10.80 E'Medial: 8.81 E/E' Med: 9.40 E/E' Lat: 7.70 PHT: 53.00 MVA PHT: 4.15 Decel Hyde: 4.60 Aortic Valve AoV Pk Mukesh: 1.45 AoV Mn Mukesh: 1.05 AoV VTI: 0.28 AoV Pk Grad: 8.00 Aov Mn Grad: 5.00 ALEJANDRO Cont.VTI: 3.29 LVOT LVOT Pk Mukesh: 1.25 LVOT Mn Mukesh: 0.86 LVOT VTI: 0.24 LVOT Pk Grad: 6.00 LVOT Mn Grad: 4.00 LVOT Diam: 2.20 LVOT Area: 3.80 Diastolic Function MV Pk E: 0.83 MV Pk A: 0.84 E/A: 1.00 E'Medial: 8.81 E/E' Med: 9.40 E' Laterial: 10.80 E/E' Lat: 7.70 Right Ventricle TAPSE (mm): 25.40 TVS' Mukesh: 13.50 Tricuspid Valve RA Press: 3.00 Great Vessels Aorta Sinus of Valsalva: 3.10 2.0-3.5 cm Ao Asc: 3.20 2.1-3.4 cm Ao Arch: 2.40 Pulmonary Valve PV Pk Mukesh: 1.63 Peak PV Grad: 11.00 Updated in Other Vendor System with Status of Final Polo Flanagan MD electronically signed on 05/28/2024 3:34:41 PM with status of Final
[2024-05-27 16:01] LABS: MANUAL DIFF FLAG NO
[2024-05-27 17:10] LABS: Appearance Urine Clear; Color Urine Yellow; Glucose Urine UA Negative (Negative); Leukocyte Esterase Urine Negative (Negative); Nitrite Urine Negative (Negative); PH 6.5 (5.0-9.0); Specific Gravity - Urine <= 1.005 (1.005-1.025); Urine Blood Negative (Negative); Urine Ketones Negative (Negative); Urine Protein Negative (Neg-Trace)
[2024-05-27 17:12] LABS: Basophils Percent Auto 0.3 % (0-2); Eosinophils Absolute Auto 0.2 X10*3/uL (0.0-0.4); Eosinophils Percent Auto 1.6 % (0-4); Hematocrit 36.9 % (37.0-47.0); Hemoglobin 12.4 g/dl (12.0-16.0); Imm Gran Abs Auto 0.04 X10*3/uL (0.00-0.03); Imm Gran Pct Auto 0.4 % (0.0-0.4); Lymphocytes Absolute Auto 1.4 X10*3/uL (1.2-4.9); Lymphocytes Percent Auto 14.2 % (20-40); Mean Corpuscular HGB Conc 33.6 g/dl (31.0-35.0); Mean Corpuscular Hemoglobin 27.9 pg (27.0-33.0); Mean Corpuscular Volume 83.1 fL (80.0-98.0); Mean Platelet Volume 8.9 fL (9.4-12.3); Monocytes Absolute Auto 0.5 X10*3/uL (0.1-1.2); Monocytes Percent Auto 4.6 % (2-11); Neutrophils Absolute Auto 7.9 x10*3/uL (2.0-8.3); Neutrophils Percent Auto 78.9 % (45-73); Platelet Count 345 X10*3/uL (160-400); Red Blood Count 4.44 X10*6/uL (4.20-5.50); Red Cell Distribution Width 12.8 % (11.0-16.0)
[2024-05-27 17:44] LABS: Alanine Aminotransferase 17 U/L (0-31); Albumin Level 4.1 g/dL (3.5-5.0); Alkaline Phosphatase 69 U/L (39-117); Anion Gap 8 (12-20); Aspartate Amino Transferase 23 U/L (5-31); Bilirubin Total 0.4 mg/dL (0.0-1.0); Blood Urea Nitrogen 14 mg/dL (9-16); Calcium 9.5 mg/dL (8.4-10.2); Carbon Dioxide 28 mmol/L (22-29); Chloride 105 mmol/L (96-108); Estimated Glomerular Filt Rate > 60; Glucose Fasting 82 mg/dL (60-99); Potassium 3.3 mmol/L (3.3-5.1); Sodium 138 mmol/L (135-145); Total Protein 8.1 g/dL (6.5-8.0)
[2024-05-27 18:01] LABS: TSH reflex Free T4 3.24 uIU/mL (0.32-4.0)
[2024-05-27 18:06] LABS: TSH reflex Free T4 3.22 uIU/mL (0.32-4.0)
[2024-05-28 18:53] LABS: DHEA Sulfate 96 mcg/dL (19-237); Prolactin 28.7 ng/mL
== END ==
LOC: HO.CARD 14:47
PROVIDERS: Advanced Practice Midwife; PCP Nurse Practitioner Family; Visit Provider Nurse Practitioner Family
DX: E66.01 Morbid (severe) obesity due to excess calories (principal); M79.89 Other specified soft tissue disorders; R79.89 Other specified abnormal findings of blood chemistry; L68.0 Hirsutism; N92.6 Irregular menstruation, unspecified; R60.0 Localized edema
CPT/HCPCS: 36415; 80053; 81003; 82627; 83498; 84146; 84402; 84403; 84443; 85025; 93306

== ENCOUNTER → 2024-05-27 15:03 | Outpatient (BNV) | payer OTHER, SELFPAY | PROVIDERS: PCP Nurse Practitioner Family; Visit Provider Internal Medicine Cardiovascular Disease | DX: E66.01 Morbid (severe) obesity due to excess calories (principal); R93.9 Diagnostic imaging inconclusive due to excess body fat of patient | CPT/HCPCS: 93306 ==

== ENCOUNTER 2024-08-26 07:32 | Outpatient (REF) | payer OTHER, SELFPAY ==
--- OUTSIDE RECORDS SUMMARY | 2024-08-26 07:34 | XMS_ITS | Encounter Summary ---
Author Organization [facility] Address [address] [place] [id number] Phone Care Team Providers Care Ginning Operator Name Role Phone Pilar Hines DO Primary Care Provider [phone] Encounter Details Date Type Department Care Team (Late st Contact Info) Description 12/27/2016 Conversion Encounter [facility] [place] [address] [place] [address] Social History Tobacco Use Types Packs/Day Years Used Date Smoking Tobacco: Never Assessed Comments Unknown Sex and Gender Information Value Date Recorded Sex Assigned at Not on file Legal Sex Female 4:27 PM EDT Gender Identity Not on file Sexual Orientation Not on file documented as of this encounter Plan of Treatment Not on file documented as of this encounter Visit Diagnoses Not on filedocumented in this encounter Care Teams Ginning Operator Relationship Specialty Start Date End Date Pilar Hines DO [address] [place] [address] PCP - General 12/21/16 11/21/22 documented as of this encounter
--- OUTSIDE RECORDS SUMMARY | 2024-08-26 07:34 | XMS_ITS | Clinical Summary ---
Author Organization [facility] Address [address] [place] [phone] Phone Care Team Providers Care Iron Bender Name Role Phone Unavailable Primary Care Provider Unavailabl e Immunizations Immunization Administration Dates Next Due DTP 12/28/1993, 1,06/17/1989,04/12,02/10/1989 HPV, Quadrivalent 01/09/2008,01/02/2007 Hep B, ped/adol 11/08/2000,03/19/2000,10/27/1999 Hib (PRP-T) 04/07/1990 MMR 10/27/1999,03/13/1990 Meningococcal Conj (Menactra) MCV4P 01/02/2007 OPV 12/28/1993, 1,04/12/1989,02/10 Td (adult) (MBL), 2 Lf tetan us toxoid, PF, adsorbed 03/19/2000 Tdap 01/09/2008 Family History Relation Name Status Comments Brother Alive Brother: Alive and well Father Alive Father: mental illness Maternal Grandfather Alive Materna l grandfather: Cancer -skin Mother Alive Mother: Depress ion Paternal Grandfather Paterna l grandfather: , Liver failure Sister Alive Sister: Alive a nd well Social History Tobacco Use Types Packs/Day Years Used Date Smoking Tobacco: Never Assessed Comments Unknown Sex and Gender Information Value Date Recorded Sex Assigned at Not on file Legal Sex Female 4:27 PM EDT Gender Identity Not on file Sexual Orientation Not on file Plan of Treatment Health Maintenance Due Date Last Done Comments Varicella Vaccines (1 of 2 - 13+ 2-dose series) 2001 HPV Vaccines (3 - 3-dose series) 04/02/2008 01/09/2008, 01/02/2007 DTaP,Tdap,and Td Vaccines (7 - Td or Tdap) 01/08/2018 01/09/2008, 03/19/2000, 12/28/1993, Additional history exists Influenza Vaccines (#1) 2023 COVID-19 Vaccine (2023- season) 2024 HIB Vaccines Completed 04/07/1990 IPV Vaccines Completed 12/28/1993, 05/1990, 04/12/1989, Additional history exists MMR Vaccines Completed 10/27/1999, 03/13/1990 Hepatitis B Vaccines Completed 11/08/2000, 03/19/2000, 10/27/1999 Meningococcal Vaccine Completed 01/02/2007 Hepatitis A Vaccines Aged Out No long er eligible based on patient's age to complete this topic Men B Vaccine Aged Out No longer elig ible based on patient's age to complete this topic Pneumococcal Vaccine Aged Out No long er eligible based on patient's age to complete this topic
[2024-08-26 10:22] LABS: Hematocrit 35.5 % (37.0-47.0); Mean Corpuscular HGB Conc 33.8 g/dl (31.0-35.0); Mean Corpuscular Hemoglobin 28.2 pg (27.0-33.0); Mean Corpuscular Volume 83.3 fL (80.0-98.0); Platelet Count 325 X10*3/uL (160-400); Red Blood Count 4.26 X10*6/uL (4.20-5.50); Red Cell Distribution Width 13.1 % (11.0-16.0)
[2024-08-26 11:10] LABS: Thyroid Stimulating Hormone 4.93 uIU/mL (0.32-4.0)
== END 2024-08-26 07:33 | disposition home or self-care (01) ==
LOC: HO.HMGCLDS 07:32
PROVIDERS: Advanced Practice Midwife; PCP Nurse Practitioner Family; Visit Provider Nurse Practitioner Family
DX: N92.1 Excessive and frequent menstruation with irregular cycle (principal); N92.0 Excessive and frequent menstruation with regular cycle
CPT/HCPCS: 36415; 84443; 85027

== ENCOUNTER 2024-09-14 07:31 | Outpatient (AMB) | payer OTHER, SELFPAY ==
--- OUTSIDE RECORDS SUMMARY | 2024-09-14 07:34 | XMS_ITS | Clinical Summary ---
Author Organization [facility] Address [address] [place] [phone] Phone Care Team Providers Care Oil Field Pumper Name Role Phone Unavailable Primary Care Provider [...]
--- OUTSIDE RECORDS SUMMARY | 2024-09-14 07:34 | XMS_ITS | Encounter Summary ---
Author Organization [facility] Address [address] [place] [phone] Phone Care Team Providers Care Hoisting Laborer Name Role Phone Pilar Hines DO Primary Care Provider [phone] Encounter Details Date Type Department Care Team (Late st Contact Info) Description 12/27/2016 Conversion Encounter [facility] [place] [address] [place] [address] Social History Tobacco Use Types Packs/Day Years [...] on filedocumented in this encounter Care Teams Hoisting Laborer Relationship Specialty Start Date End Date Pilar Hines DO [address] [place] [address] PCP - General 12/21/16 11/21/22 documented as of this encounter
[2024-09-14 07:39] VITALS: BP 138/90; PULSE 80; RESP 16; TEMP 36.5; O2SAT 100; BMI 45.3
--- NOTE | 2024-09-14 07:39 | MHC.PC.OV ---
Vital Signs 09/14/24 07:39 09/14/24 08:17 Height 5 ft 7 in Weight 289 lb BMI 45.3 BP 138/90 H 132/80 Blood Pressure Location Rt brachial Lt brachial Position Sitting Sitting Respiration 16 Pulse 80 Pulse Source Pulse Oximeter Temp 97.7 F Temp Source Oral Pulse Oximetry (%) 100 Oxygen Delivery Method Room Air Intake Visit Reasons: Physical exam Intake Note: Pt is here today for her PE Allergies ciprofloxacin [From Cipro] Allergy (Severe, Verified 09/14/24 08:23) tachycardia, sob Sulfa (Sulfonamide Antibiotics) Allergy (Verified 09/14/24 08:23) rash, hives Medication List - Last Reconciled 09/14/24 by Farhan Rodgers, CAREER AGENT- buprenorphine-naloxone 8-2 mg 4 film sublingual copper (ParaGard T 380A) intrauterine ferrous sulfate 325 mg PO BID 30 days hydrochlorothiazide 12.5 mg PO DAILY magnesium carb,citrate,oxide (Magnesium Complex) mg PO multivitamin with minerals 10 mL PO DAILY ondansetron 4 mg PO Q8H PRN 10 days propranolol ER 80 mg PO DAILY tirzepatide (weight loss) (Zepbound) mg subcut Tobacco use date assessed: 09/14/24 Dental Screening Dental Screen Date: 09/14/24 Did you have a dental visit in the last 12 months?: Yes Did you have a dental problem in the last 6 months where you did not have access to dental care?: Yes Was dental information given to patient?: Patient has dentist HPI Physical exam HPI Details History of Present Illness The patient is a 33-year-old female presenting with concerns related to otitis media and external ear dryness. Her symptoms include dryness around both ears, clinically consistent with psoriasis, for which a steroid cream may be prescribed. She also presents with right-sided otitis media, as evidenced by a bulging erythematous tympanic membrane, though she denies any ear pain or hearing loss. She reports no instances of chest pain, shortness of breath, abdominal discomfort, or gastrointestinal changes. Suicidal and homicidal ideations are also denied. The patient deals with morbid obesity, managed in part by Zepbound, which has recently shown positive results in weight loss. There is a recommendation for her to undergo laboratory tests soon to evaluate her overall health status. Health Maintenance - Encouraged to complete laboratory tests in the near future for health assessment purposes. - Discussed the importance of weight management, patient is on Zepbound for obesity with noted weight loss progress. Social History - Current medication includes Zepbound for obesity. - Efforts in weight management are ongoing, with noticeable changes in progress. Review of Systems - Skin: Reports dryness to the external aspect of the ears; possible psoriasis. - HEENT: Denies otalgia or hearing changes. - Cardiovascular: Denies chest pain. - Respiratory: Denies shortness of breath. - Gastrointestinal: Denies abdominal pain, constipation, diarrhea, or blood in stool. - Psychiatric: Denies suicidal or homicidal ideation. Physical Exam General: Cooperative, healthy appearing, comfortable, no acute distress and well developed, morbidly obese Orientation: Patient oriented x3 Limitations: No limitations Head: Normal to inspection Ears: Hearing grossly normal bilaterally, some dryness to the external aspect of bilaterally ears, possibly psoriasis Nose: Normal external nose present Face and sinus: Normal facial exam Eyes: Appearance normal, both eyes and all related structures Neck: Normal visual inspection and Yes full ROM Respiratory: Normal respiratory effort and able to speak in complete sentences. Clear to auscultation bilaterally Cardiovascular: Regular rate and rhythm. Normal S1 and S2 GI: Normal to inspection. Soft to palpation and nontender Skin: No rashes or lesions noted Neuro: Patient oriented x3 Extremities: Normal to inspection Results Plan A clinical diagnosis of right-sided acute otitis media necessitates antibiotic intervention to counter the infection, noted through the erythematous bulging tympanic membrane. The patient's ear dryness, identified as possible psoriasis, will be treated with steroid cream to manage symptoms. Continuous monitoring of weight loss on Zepbound is recommended due to the patient's morbid obesity, with upcoming laboratory tests suggested for comprehensive health evaluation and future management planning. Discussion Notes We discussed the management of right-sided acute otitis media and its clinical presentation. I explained the need for antibiotic treatment given the diagnosis. For psoriasis-like symptoms on the external ears, the use of a steroid cream was suggested. We reviewed the role of Zepbound in weight loss and noted encouraging progress, emphasizing adherence to this medication. I advised the patient on the importance of scheduled laboratory tests for ongoing health monitoring. Consent for these treatments and strategies was obtained, aligning with the patient's health objectives. Patient Instructions - Use prescribed steroid cream for external ear dryness. - Continue using Zepbound as directed and monitor weight changes. - Attend recommended lab tests soon for further health assessment. - Report any new symptoms, especially ear pain or discharge. [facility] Medical History Hirsutism UTI (urinary tract infection) FH: breast cancer in first degree relative Tension headache Anxiety Lymphadenopathy Depression with anxiety Opioid abuse, in remission Heartburn Vulvar dermatitis No known health problems Surgical History History of foot surgery Family History Father ADHD Bipolar disorder Mother H/O: manic depressive disorder Anxiety Breast cancer Cervical cancer HTN (hypertension) Brother No problems noted. Sister No problems noted. Maternal Grandfather Stomach cancer Colon cancer High cholesterol Stroke Maternal Grandmother No problems noted. Paternal Grandmother Brain cancer Lung cancer Obese Paternal Grandfather No problems noted. Maternal Uncle Skin cancer Brother No problems noted. Sister No problems noted. Daughter No problems noted. Social History Alcohol intake: never Patient Tobacco Use Status: Never used Tobacco e-Cigarette/Vaping Use: Never Used service: No Current occupational status: employed Current occupation: [employer] Gender identity: Female Cognitive needs: No Hearing needs: No Vision needs: No Female Reproductive History Menstrual Age of Menarche: 11 Questionnaire PHQ-9 Over the last 2 weeks, how often have you been bothered by any of the following problems? 1. Little interest or pleasure in doing things: not at all 2. Feeling down, depressed, or hopeless: not at all 3. Trouble falling or staying asleep, or sleeping too much: not at all 4. Feeling tired or having little energy: not at all 5. Poor appetite or overeating: not at all 6. Feeling bad about yourself - or that you are a failure or have let yourself or your family down: not at all 7. Trouble concentrating on things, such as reading the newspaper or watching television: not at all 8. Moving or speaking so slowly that other people could have noticed. Or the opposite - being so fidgety or restless that you have been moving around a lot more than usual: not at all 9. Thoughts that you would be better off or of hurting yourself in some way: not at all Total score: 0 Depression Screening Interpretation: Negative Depression Screening Done: Yes 64819 - PHQ-9 Billing: Yes Source: Developed by Drs. Musa Lott, Darby Dutton, Michelet Miranda and colleagues, with an educational trini from [employer]. Thrive Questionnaire Date Thrive assessed: 09/14/24 I am a: Patient What is your living situation today?: I have a steady place to live Within the past 12 months, did the food you bought not last and you didn't have the money to get more?: Never true Within the past 12 months, did you worry whether your food would run out before you got money to buy more?: Never true Do you have trouble paying for medicines?: No Do you have trouble getting transportation to medical appointments?: No Do you have trouble paying your heating and electricity bill?: No Do you have trouble taking care of your child, family member or friend?: No Do you have trouble with day-to-day activities such as bathing, preparing meals, shopping, managing finances, etc.?: No Are you currently unemployed and looking for a job?: No Are you interested in more education?: No Please select the resources that you would like help with: None Currently or been in a relationship where the following occur: No concerns reported THRIVE Score: 0 AUDIT C Alcohol Use Questionnaire (AUDIT-C) 1. How often do you have a drink containing alcohol?: Never Total Score: 0 MINA-7 AMB Questionnaire MINA-7 Date MINA - 7 assessed: 09/14/24 Feeling nervous, anxious, or on edge: 0 = Not at all Not being able to stop or control worryin = Not at all Worrying too much about different things: 0 = Not at all Trouble relaxin = Not at all Being so restless that it is hard to sit still: 0 = Not at all Becoming easily annoyed or irritable: 0 = Not at all Feeling afraid as if something awful might happen: 0 = Not at all Total MINA-7 score (0-4 normal; 5-9 mild; 10-14 moderate; 15-21 severe): 0 Source: Developed by Drs. Musa Lott, Darby Dutton, Michelet Miranda and colleagues, with an educational trini from [employer]. Physical exam (Primary Care) Vital Signs: Last Vital Signs Temp 97.7 F 09/14/24 07:39 Pulse 80 09/14/24 07:39 Resp 16 09/14/24 07:39 BP 132/80 09/14/24 08:17 Pulse Ox 100 09/14/24 07:39 Oxygen Delivery Method Room Air 09/14/24 07:39 BMI result Body Mass Index 45.3 Tobacco/Smoking Status: Tobacco use Status Tobacco use date assessed 09/14/24 09/14/24 07:42 Patient Tobacco Use Status Never used Tobacco 09/14/24 07:39 e-Cigarette/Vaping Use Never Used 09/14/24 07:39 PHQ-9: PHQ-9 Score PHQ-9: Total score 0 09/14/24 08:21 Depression Screening Interpretation: Negative Thrive Assessment: Date of Thrive Assessment Date Thrive assessed 09/14/24 09/14/24 07:42 Currently or been in a relationship where the following occur: No concerns reported Coding Level of Care Code Est Pt Prev Care 18-39y(78992) Diagnoses Physical exam Z00.00 Morbid obesity E66.01 Otitis media H66.90 Additional Codes PHQ-9 - 94460 - PHQ-9 Billing: Yes ([id number]) Assessment & Plan Assessment & Plan (1) Physical exam: Code(s): Z00.00 - Encounter for general adult medical examination without abnormal findings Category: Medical (2) Morbid obesity: Code(s): E66.01 - Morbid (severe) obesity due to excess calories Category: Medical (3) Otitis media: Code(s): H66.90 - Otitis media, unspecified, unspecified ear Category: Medical Plan . Orders: Orders Lipid Panel Today Z00.00 - Encounter for general adult medical examination without abnormal findings Complete Blood Count Auto Diff Today Z00.00 - Encounter for general adult medical examination without abnormal findings Comprehensive [place]. Panel Fast Today Z00.00 - Encounter for general adult medical examination without abnormal findings TSH reflex Free T4 Today Z00.00 - Encounter for general adult medical examination without abnormal findings UA CC w/rflx Micro + Cult Today Z00.00 - Encounter for general adult medical examination without abnormal findings Medications: New amoxicillin-pot clavulanate 875-125 mg 1 tab PO BID 20 tabs 0RF 10 days betamethasone dipropionate 0.05% 1 appl topical DAILY PRN 15 grams 0RF skin irritation tirzepatide (weight loss) (Zepbound) 7.5 mg (0.5 mL) subcut QWEEK 2 mL 0RF
[2024-09-14 08:17] VITALS: BP 132/80
== END 2024-09-14 08:51 | disposition home or self-care (01) ==
LOC: HO.HMCC 07:32
PROVIDERS: PCP Nurse Practitioner Family; Visit Provider Nurse Practitioner Family
DX: Z00.00 Encounter for general adult medical examination without abnormal findings (principal); E66.01 Morbid (severe) obesity due to excess calories; Z68.42 Body mass index [BMI] 45.0-49.9, adult; H66.91 Otitis media, unspecified, right ear

== ENCOUNTER → 2024-09-14 07:31 | Outpatient (BNVA) | payer OTHER, SELFPAY | PROVIDERS: PCP Nurse Practitioner Family; Visit Provider Nurse Practitioner Family | DX: Z00.01 Encounter for general adult medical examination with abnormal findings (principal); H66.91 Otitis media, unspecified, right ear; E66.01 Morbid (severe) obesity due to excess calories; Z68.42 Body mass index [BMI] 45.0-49.9, adult | CPT/HCPCS: 96127 ==

== ENCOUNTER 2024-09-26 10:30 | Outpatient (REF) | payer OTHER, SELFPAY ==
[2024-09-26 13:35] LABS: Appearance Urine Clear; Color Urine Yellow; Glucose Urine UA Negative (Negative); Leukocyte Esterase Urine Small (1+) (Negative); Nitrite Urine Negative (Negative); PH >= 9.0 (5.0-9.0); UMIC TRIGGER UACC YES; Urine Blood Trace (Negative); Urine Ketones Negative (Negative); Urine Protein Negative (Neg-Trace)
[2024-09-26 13:37] LABS: MANUAL DIFF FLAG NO
[2024-09-26 13:37] LABS: Bacteria Urine 1+ (None Seen); Hyaline Casts Urine 0-2 /LPF (0-2); RBC Urine 0-2 /HPF (0-2); UACC Culture Trigger YES
[2024-09-26 13:39] LABS: Basophils Percent Auto 0.6 % (0-2); Eosinophils Absolute Auto 0.2 X10*3/uL (0.0-0.4); Hematocrit 33.9 % (37.0-47.0); Hemoglobin 11.3 g/dl (12.0-16.0); Imm Gran Abs Auto 0.02 X10*3/uL (0.00-0.03); Imm Gran Pct Auto 0.3 % (0.0-0.4); Lymphocytes Absolute Auto 1.4 X10*3/uL (1.2-4.9); Lymphocytes Percent Auto 22.4 % (20-40); Mean Corpuscular HGB Conc 33.3 g/dl (31.0-35.0); Mean Corpuscular Hemoglobin 27.8 pg (27.0-33.0); Mean Corpuscular Volume 83.5 fL (80.0-98.0); Monocytes Absolute Auto 0.4 X10*3/uL (0.1-1.2); Monocytes Percent Auto 6.1 % (2-11); Neutrophils Absolute Auto 4.4 x10*3/uL (2.0-8.3); Neutrophils Percent Auto 67.6 % (45-73); Platelet Count 312 X10*3/uL (160-400); Red Blood Count 4.06 X10*6/uL (4.20-5.50); Red Cell Distribution Width 13.2 % (11.0-16.0); White Blood Count 6.4 X10*3/uL (4.8-10.8)
[2024-09-26 14:01] LABS: Alanine Aminotransferase 11 U/L (0-31); Albumin Level 3.9 g/dL (3.5-5.0); Alkaline Phosphatase 65 U/L (39-117); Anion Gap 12 (12-20); Aspartate Amino Transferase 22 U/L (5-31); Bilirubin Total 0.5 mg/dL (0.0-1.0); Blood Urea Nitrogen 11 mg/dL (9-16); Calcium 9.5 mg/dL (8.4-10.2); Carbon Dioxide 28 mmol/L (22-29); Chloride 103 mmol/L (96-108); Cholesterol 138 mg/dL (<200); Estimated Glomerular Filt Rate > 60; Glucose Fasting 81 mg/dL (60-99); HDL Cholesterol 43 mg/dL (>40); LDL Cholesterol Calculated 86 mg/dL (<100); Potassium 3.8 mmol/L (3.3-5.1); Sodium 139 mmol/L (135-145); Total Protein 7.4 g/dL (6.5-8.0); Triglycerides 45 mg/dL (<150)
[2024-09-26 14:12] LABS: TSH reflex Free T4 3.09 uIU/mL (0.32-4.0)
== END 2024-09-26 10:31 | disposition home or self-care (01) ==
LOC: HO.HMGCLDS 10:30
PROVIDERS: PCP Nurse Practitioner Family; Visit Provider Nurse Practitioner Family
DX: Z00.00 Encounter for general adult medical examination without abnormal findings (principal); R82.90 Unspecified abnormal findings in urine
CPT/HCPCS: 36415; 80053; 80061; 81001; 84443; 85025; 87086

== ENCOUNTER 2024-09-30 08:26 | Outpatient (AMB) | payer OTHER, SELFPAY ==
--- NOTE | 2024-09-30 07:41 | MHC.PC.OV ---
Intake Visit Reasons: request fmla for appts Allergies ciprofloxacin [From Cipro] Allergy (Severe, Verified 09/30/24 07:43) tachycardia, sob Sulfa (Sulfonamide Antibiotics) Allergy (Verified 09/30/24 07:43) rash, hives Medication List - Last Reconciled 09/30/24 by Farhan Rodgers, SENIOR ADMINISTRATOR SUPPORT- amoxicillin-pot clavulanate 875-125 mg 1 tab PO BID 10 days betamethasone dipropionate 0.05% 1 appl topical DAILY PRN buprenorphine-naloxone 8-2 mg 4 film sublingual copper (ParaGard T 380A) intrauterine ferrous sulfate 325 mg PO BID 30 days hydrochlorothiazide 12.5 mg PO DAILY magnesium carb,citrate,oxide (Magnesium Complex) mg PO multivitamin with minerals 10 mL PO DAILY ondansetron 4 mg PO Q8H PRN 10 days propranolol ER 80 mg PO DAILY tirzepatide (weight loss) (Zepbound) 7.5 mg (0.5 mL) subcut QWEEK Tobacco use date assessed: 09/14/24 Dental Screening Dental Screen Date: 09/14/24 HPI request fmla for appts HPI Details History of Present Illness The patient is a 33-year-old female presenting with follow-up concerns for her mental health therapy and the administrative needs surrounding it. She has been consistently attending therapy sessions every Saturday at 2:00 PM, which she finds greatly beneficial for her emotional and mental stability. Her therapy involves family participation, which has contributed positively to her progress. She denies any serious symptoms such as suicidal or homicidal ideations, chest pain, or shortness of breath. The discussion during this telehealth visit primarily focused on processing the FMLA paperwork needed to continue her therapy sessions without work disruptions. Review of Systems - Psychiatric: Reports attending therapy sessions weekly, with improvements noted in emotional stability. Denies suicidal or homicidal ideation. - Cardiovascular: Denies chest pain. - Respiratory: Denies shortness of breath. Plan The plan for the patient's management of her Adjustment Disorder with Mixed Anxiety and Depressed Mood involves supporting her existing therapeutic routine by facilitating necessary FMLA documentation. This ensures her therapy sessions remain uninterrupted, capitalizing on the family-inclusive approach that has favored her emotional improvements. The commitment to complete her FMLA paperwork upon submission allows her to maintain her current mental health trajectory. No modifications to her therapeutic regimen were discussed during this visit, as her progression is positive. Discussion Notes During the telehealth visit, I discussed with the patient the logistics related to her ongoing mental health therapy and the necessary FMLA documentation. We talked about the practicalities of attending these weekly sessions, scheduled at 2:00 PM on Tuesdays, to accommodate her mental health needs. I assured her of my readiness to complete her FMLA paperwork once submitted, providing clarity on the seven and a half hours requested weekly. We touched on her therapy's positive effects, supported by family participation, which she acknowledged has greatly helped her emotional progress. No immediate changes to her treatment plan were required as her current approach appears beneficial. Patient Instructions - Continue attending your therapy sessions weekly as scheduled. - Monitor your mental health and emotional well-being. - Submit your FMLA paperwork for completion to finalize the necessary administrative support for your therapy attendance. - Notify me if there are any changes in your symptoms or if you experience new or worsening issues. [facility] Medical History Hirsutism UTI (urinary tract infection) FH: breast cancer in first degree relative Tension headache Anxiety Lymphadenopathy Depression with anxiety Opioid abuse, in remission Heartburn Vulvar dermatitis No known health problems Surgical History History of foot surgery Family History Father ADHD Bipolar disorder Mother H/O: manic depressive disorder Anxiety Breast cancer Cervical cancer HTN (hypertension) Brother No problems noted. Sister No problems noted. Maternal Grandfather Stomach cancer Colon cancer High cholesterol Stroke Maternal Grandmother No problems noted. Paternal Grandmother Brain cancer Lung cancer Obese Paternal Grandfather No problems noted. Maternal Uncle Skin cancer Brother No problems noted. Sister No problems noted. Daughter No problems noted. Social History Alcohol intake: never Patient Tobacco Use Status: Never used Tobacco e-Cigarette/Vaping Use: Never Used service: No Current occupational status: employed Current occupation: [employer] Gender identity: Female Cognitive needs: No Hearing needs: No Vision needs: No Female Reproductive History Menstrual Age of Menarche: 11 Questionnaire Thrive Questionnaire Date Thrive assessed: 09/14/24 MINA-7 AMB Questionnaire MINA-7 Date MINA - 7 assessed: 09/14/24 Source: Developed by Drs. Musa Lott, Darby Dutton, Michelet Miranda and colleagues, with an educational trini from [employer]. Physical exam (Primary Care) Tobacco/Smoking Status: Tobacco use Status Tobacco use date assessed 09/14/24 09/14/24 08:50 Patient Tobacco Use Status Never used Tobacco 09/14/24 08:50 e-Cigarette/Vaping Use Never Used 09/14/24 08:50 Thrive Assessment: Date of Thrive Assessment Date Thrive assessed 09/14/24 09/14/24 08:50 Coding Level of Care Code Tele Est Pt Level 3 (86150) Diagnoses Depression with anxiety F41.8 Assessment & Plan Assessment & Plan (1) Depression with anxiety: Code(s): F41.8 - Other specified anxiety disorders Category: Medical Plan .
--- OUTSIDE RECORDS SUMMARY | 2024-09-30 09:48 | XMS_ITS | Encounter Summary ---
Author Organization [facility] Address [address] [place] [id number] Phone Care Team Providers Care Travel Registered Nurse Icu Name Role Phone Pilar Hines DO Primary Care Provider [phone] Encounter Details Date Type Department Care Team (Late st Contact Info) Description 12/27/2016 Conversion Encounter [facility] [address] [place] [address] Social History Tobacco Use Types Packs/Day Years [...] on filedocumented in this encounter Care Teams Travel Registered Nurse Icu Relationship Specialty Start Date End Date Pilar Hines DO [address] [place] [address] PCP - General 12/21/16 11/21/22 documented as of this encounter
--- OUTSIDE RECORDS SUMMARY | 2024-09-30 09:48 | XMS_ITS | Clinical Summary ---
Author Organization [facility] Address [address] [place] [id number] Phone Care Team Providers Care Mononitrotoluene Operator Name Role Phone Unavailable Primary Care Provider [...]
== END 2024-09-30 13:23 | disposition home or self-care (01) ==
LOC: HO.HMCC 08:26
PROVIDERS: PCP Nurse Practitioner Family; Visit Provider Nurse Practitioner Family
DX: F41.8 Other specified anxiety disorders (principal)

== ENCOUNTER → 2024-09-30 08:26 | Outpatient (BNVA) | payer OTHER, SELFPAY | PROVIDERS: PCP Nurse Practitioner Family; Visit Provider Nurse Practitioner Family | DX: F41.8 Other specified anxiety disorders (principal) ==

== ENCOUNTER 2024-11-17 14:39 | Outpatient (AMB) | payer OTHER, SELFPAY ==
[2024-11-17 14:45] VITALS: BP 142/86; PULSE 90; TEMP 36.8; O2SAT 100; BMI 43.1
--- NOTE | 2024-11-17 14:45 | MHC.OFFWIV ---
Intake Vital Signs 11/17/24 14:45 Height 5 ft 7 in Weight 275 lb BMI 43.1 BP 142/86 H Blood Pressure Location Rt brachial Position Sitting Pulse 90 Pulse Source Pulse Oximeter Temp 98.3 F Temp Source Oral Pulse Oximetry (%) 100 Oxygen Delivery Method Room Air Intake Visit Reasons: PE Redness at zepbound injection site. Intake Note: presents with redness to zepbound injection site at right upper thigh x2 days, also c/o redness at injection site on left upper thigh from 9 days ago Patient Tobacco Use Status: Never used Tobacco Allergies ciprofloxacin (From Cipro) Allergy (Severe, Verified 11/17/24 14:45) tachycardia, sob Sulfa (Sulfonamide Antibiotics) Allergy (Verified 11/17/24 14:45) rash, hives Medication List - Last Reconciled 11/17/24 by Vilma Britt PA-C betamethasone dipropionate 0.05% 1 appl topical DAILY PRN buprenorphine-naloxone 8-2 mg 4 film sublingual copper (ParaGard T 380A) intrauterine ferrous sulfate 325 mg orally once to twice per week; can make stools dark and cause constipation hydrochlorothiazide 12.5 mg PO DAILY magnesium carb,citrate,oxide (Magnesium Complex) mg PO multivitamin with minerals 10 mL PO DAILY ondansetron 4 mg PO Q8H PRN 10 days propranolol ER 80 mg PO DAILY tirzepatide (weight loss) 12.5 mg (0.5 mL) subcut QWEEK Do you need a note to return to daycare/school/sports/work: No HPI HPI Comments History of Present Illness Details History - The patient is a 33-year-old female presenting with concerns of a possible allergic reaction and question of cellulitis at the medication injection site. - The patient has been using a Zepbound medication pen for injections and noticed redness and itchiness at the injection site. - The reaction started after the last injection on Saturday on her left upper thigh, with symptoms including itchiness and warmth at the site. That site seemed to get better on its own, she did use betamethasone once on it. But then she injected again 3 days ago and has a similar area of redness and warmth on her right upper thigh at the injection site. - No documented fever or chills, although the patient reported feeling unwell with a temperature fluctuation. - The patient is concerned about the possibility of cellulitis - she tells me she has been using the medication for 8 months and has not had an issue but she is getting anxious about using it and she might be stopping the medication altogether. She is not sure the best way to do this and she thinks she is going to be increasing her dose which her PCP is doing a prior authorization for right now. Physical Exam General: Cooperative, healthy appearing, comfortable, no acute distress and well developed Orientation: Patient oriented x3 Limitations: No limitations Head: Normal to inspection Ears: Hearing grossly normal bilaterally Nose: Normal External nose present Face and sinus: Normal facial exam Mouth: normal, moist oral mucosa Eyes: Appearance normal, both eyes and all related structures Neck: Normal visual inspection and Yes full ROM Respiratory: Normal respiratory effort and able to speak in complete sentences. Skin: Left upper thigh has scant area of erythema, right upper thigh has a 1.5 cm oblong area of erythema and warmth, no ecchymosis, no tenderness to palpation Neuro: Patient oriented x3 Extremities: moving all extremities normally [facility] Medical History Hirsutism UTI (urinary tract infection) FH: breast cancer in first degree relative Tension headache Anxiety Lymphadenopathy Depression with anxiety Opioid abuse, in remission Heartburn Vulvar dermatitis No known health problems Surgical History History of foot surgery Family History Father ADHD Bipolar disorder Mother H/O: manic depressive disorder Anxiety Breast cancer Cervical cancer HTN (hypertension) Brother No problems noted. Sister No problems noted. Maternal Grandfather Stomach cancer Colon cancer High cholesterol Stroke Maternal Grandmother No problems noted. Paternal Grandmother Brain cancer Lung cancer Obese Paternal Grandfather No problems noted. Maternal Uncle Skin cancer Brother No problems noted. Sister No problems noted. Daughter No problems noted. Social History Alcohol intake: never Patient Tobacco Use Status: Never used Tobacco e-Cigarette/Vaping Use: Never Used service: No Current occupational status: employed Current occupation: [employer] Gender identity: Female Cognitive needs: No Hearing needs: No Vision needs: No Female Reproductive History Menstrual Age of Menarche: 11 Review of Systems Const All systems reviewed & are unremarkable except as noted in HPI and below Physical Exam Vital Signs: Last Vital Signs Temp 98.3 F 11/17/24 14:45 Pulse 90 11/17/24 14:45 BP 142/86 H 11/17/24 14:45 Pulse Ox 100 11/17/24 14:45 Oxygen Delivery Method Room Air 11/17/24 14:45 BMI result Body Mass Index 43.1 Assessment & Plan Assessment & Plan (1) Allergic contact dermatitis due to drugs in contact with skin: Code(s): L23.3 - Allergic contact dermatitis due to drugs in contact with skin Plan: Patient was informed and verbally consented to the use of an ambient scribe for clinic note documentation during this visit 1. Allergic Reaction To Medication Injection - Plan to use topical steroid cream twice daily, such as betamethasone which she has at home, to alleviate symptoms. Can add Benadryl at night. - Monitor the reaction for 72 hours to assess improvement. - If symptoms persist or worsen, consider further evaluation for possible cellulitis. She is in contact with Carmen on a regular basis so I told her to let Emmy know if it gets worse after the next day which would bring his past 72 hours, if it does, I would prescribe Keflex for a possible cellulitis. - also message her PCP about the best way to stop the medication Medications: Changed From ferrous sulfate can make stools dark and cause constipation 325 mg PO BID 30 days 60 tabs 1RF To ferrous sulfate 325 mg orally once to twice per week; can make stools dark and cause constipation Coding Level of Care Code Est Pt Level 3 (60167) Diagnoses Allergic contact dermatitis due to drugs in contact with skin L23.3
--- OUTSIDE RECORDS SUMMARY | 2024-11-17 15:27 | XMS_ITS | Encounter Summary ---
Author Organization [facility] Address [address] [place] [id number] Phone Care Team Providers Care Wound Care Rn Name Role Phone Pilar Hines DO Primary Care Provider [phone] Encounter Details Date Type Department Care Team (Late st Contact Info) Description 12/27/2016 Conversion Encounter [facility] [place] [address] [place] [address] Social History Tobacco Use Types Packs/Day Years [...] on filedocumented in this encounter Care Teams Wound Care Rn Relationship Specialty Start Date End Date Pilar Hines DO [address] [place] [address] PCP - General 12/21/16 11/21/22 documented as of this encounter
== END 2024-11-17 15:36 | disposition home or self-care (01) ==
PROVIDERS: PCP Nurse Practitioner Family; Visit Provider Physician Assistant
DX: L23.3 Allergic contact dermatitis due to drugs in contact with skin (principal)

== ENCOUNTER 2025-01-19 16:20 | Outpatient (AMB) | payer OTHER, SELFPAY ==
[2025-01-19 16:23] VITALS: BP 130/98; PULSE 88; TEMP 37.5; O2SAT 100; BMI 42.8
--- NOTE | 2025-01-19 16:23 | AM.OFFWIN_ITS ---
Intake Vital Signs 01/19/25 16:23 Height 5 ft 7 in Weight 273 lb BMI 42.8 BP 130/98 H Blood Pressure Location Lt brachial Position Sitting Pulse 88 Pulse Source Pulse Oximeter Temp 99.5 F Temp Source Oral Pulse Oximetry (%) 100 Oxygen Delivery Method Room Air Intake Visit Reasons: EP-stool issues, heart dennis Intake Note: pt presents with heart burn, very dark brown stool and sticky appearing today Patient Tobacco Use Status: Never used Tobacco Allergies ciprofloxacin (From Cipro) Allergy (Severe, Verified 01/19/25 16:28) tachycardia, sob Sulfa (Sulfonamide Antibiotics) Allergy (Verified 01/19/25 16:28) rash, hives Do you need a note to return to daycare/school/sports/work: No HPI HPI Comments History of Present Illness Details History of Present Illness - The patient is a 34-year-old female pr esenting with concerns of dark stool and persistent heartburn. - She states that she had a bowel moveme nt which was dark brown and it was sticky. - She had no blood in the toilet or on t he paper when she wiped. - The patient has a history of heartburn managed with omeprazole which she takes daily. - She states that she has been having no rmal BM's since she stopped Wegovy. - She used Pepto-Bismol and has been karen ing iron supplements. - She had no abdominal pain or vomiting. - She was worried and so she came in to be checked. Physical Exam General: Cooperative, healthy appearing, comfortable, no acute distress and well developed Orientation: Patient oriented x3 Respiratory: Normal respiratory effort and able to speak in complete sentences. Clear to auscultation bilaterally Cardiovascular: Regular rate and rhythm. Normal S1 and S2 GI: Normal to inspection. Soft to palpation and nontender, non distended. No TTP, no guarding or rebound tenderness. Skin: No rashes or lesions noted Patient was informed and verbally consented to the use of an ambient scribe for clinic note documentation during this visit. COUNT INCLUDES THE [facility] Medical History Hirsutism UTI (urinary tract infection) FH: breast cancer in first degree relative Tension headache Anxiety Lymphadenopathy Depression with anxiety Opioid abuse, in remission Heartburn Vulvar dermatitis No known health problems Surgical History History of foot surgery Family History Father ADHD Bipolar disorder Mother H/O: manic depressive disorder Anxiety Breast cancer Cervical cancer HTN (hypertension) Brother No problems noted. Sister No problems noted. Maternal Grandfather Stomach cancer Colon cancer High cholesterol Stroke Maternal Grandmother No problems noted. Paternal Grandmother Brain cancer Lung cancer Obese Paternal Grandfather No problems noted. Maternal Uncle Skin cancer Brother No problems noted. Sister No problems noted. Daughter No problems noted. Social History Alcohol intake: never Patient Tobacco Use Status: Never used Tobacco e-Cigarette/Vaping Use: Never Used service: No Current occupational status: employed Current occupation: [employer] Gender identity: Female Cognitive needs: No Hearing needs: No Vision needs: No Female Reproductive History Menstrual Age of Menarche: 11 Review of Systems Const All systems reviewed & are unremarkable except as noted in HPI and below Physical Exam Vital Signs: Last Vital Signs Temp 99.5 F 01/19/25 16:23 Pulse 88 01/19/25 16:23 BP 130/98 H 01/19/25 16:23 Pulse Ox 100 01/19/25 16:23 Oxygen Delivery Method Room Air 01/19/25 16:23 BMI result Body Mass Index 42.8 Assessment & Plan Assessment & Plan (1) Dark stools: Code(s): R19.5 - Other fecal abnormalities (2) GERD (gastroesophageal reflux disease): Code(s): K21.9 - Gastro-esophageal reflux disease without esophagitis Qualifiers: Esophagitis presence: without esophagitis Qualified Code(s): K21.9 - Gastro-esophageal reflux disease without esophagitis Plan Most likely dark stool due to iron use and Pepto-Bismol and its unlikely GI bleed plan - Continue omeprazole as needed for heartburn management. - Monitor symptoms and adjust medication as necessary. - Discontinue Pepto-Bismol to assess changes in stool color. - Continue iron supplements as needed, but monitor stool color closely. - Return for evaluation if stools remain dark or if other symptoms develop. Coding Level of Care Code Est Pt Level 3 (15162) Diagnoses Dark stools R19.5 Gastroesophageal reflux disease without esophagitis K21.9 Esophagitis presence: without esophagitis
--- OUTSIDE RECORDS SUMMARY | 2025-01-19 18:12 | XMS_ITS | Encounter Summary ---
Author Organization [facility] Address [address] [place] [phone] Phone Care Team Providers Care Newspaper Correspondent Name Role Phone Pilar Hines DO Primary Care Provider [phone] Encounter Details Date Type Department Care Team (Late st Contact Info) Description 12/27/2016 Conversion Encounter [facility] - [place] [address] [place] [address] Social History Tobacco Use Types Packs/Day Years [...] on filedocumented in this encounter Care Teams Newspaper Correspondent Relationship Specialty Start Date End Date Pilar Hines DO [address] [place] [address] PCP - General 12/21/16 11/21/22 documented as of this encounter
--- OUTSIDE RECORDS SUMMARY | 2025-01-19 18:12 | XMS_ITS | Clinical Summary ---
Author Organization [facility] Address [address] [place] [phone] Phone Care Team Providers Care Clinical Services Director Name Role Phone Unavailable Primary Care Provider [...] 12/28/1993, Additional history exists Influenza Vaccines (#1) 2024 COVID-19 Vaccine ( season) 2025 HIB Vaccines Completed 04/07/1990 IPV Vaccines Completed [...]
== END 2025-01-19 16:56 | disposition home or self-care (01) ==
PROVIDERS: PCP Nurse Practitioner Family; Visit Provider Physician Assistant Medical
DX: R19.5 Other fecal abnormalities (principal); K21.9 Gastro-esophageal reflux disease without esophagitis

== ENCOUNTER 2025-02-17 10:46 | Outpatient (AMB) | payer OTHER, SELFPAY ==
--- NOTE | 2025-02-17 11:17 | MHC.AMNUTRGE ---
Intake Visit Reasons: Re-Establish Nutrition Care Allergies ciprofloxacin (From Cipro) Allergy (Severe, Verified 01/19/25 16:28) tachycardia, sob Sulfa (Sulfonamide Antibiotics) Allergy (Verified 01/19/25 16:28) rash, hives Nutrition Presentation Details: Pt is concerned about weight regain now that she has stopped taking GLPs due to GI intolerance. Has regained about 4.5# in the last 2 months and wishes to prevent any further gain. Has stopped eating gluten for the last week or so but was informed that she needs to be eating a mild amount of gluten in order to get accurate test results. Pt reports she knows she likely was undereating while on the GLPs, especially protein. Currently has drastically increased fiber intake via mushrooms and experienced a lot of bloating, even more so than with gluten. Pasta is more bothersome than sourdough bread. Is not currently doing any exercise. When eats gluten, experiences severe brain fog, GI distress and anxiety. Has life stress at baseline which pt was made aware could be a link to GI symptoms. Is worried about getting U/S done because she has a fear or a cancer diagnosis. Reason for consult: elevated BMI and other (GI issues) GI symptoms: reports nausea and other (gas, bloating) Food allergies/aversions: Yes (possible) Diet Assmnt Details: Had been on GLP's for several months between 2023 and 2024, Zepbound and Wegovy, but overall had perpetual nausea and used a lot of zofran. RD questions if pt was over eating on the meds. Started at 315# and got down to 270%, about 14% TBWL. Has been off GLP's for about 2 months but had nausea for about 1.5 months s/p med cessation. Dietary counseling: other (may benefit from doing a low FODMAP challenge) Who buys your food: self Who prepares/cooks your food: self Lifestyle Reads food labels: Yes (avoids added sugar) Family support: Yes Exercise: No BS Monitoring Most Recent Diabetes Results: Cholesterol, (<200) 138 mg/dL 09/26/24 HDL Cholesterol, (>40) 43 mg/dL 09/26/24 Triglycerides, (<150) 45 mg/dL 09/26/24 AST, (5-31) 22 U/L 09/26/24 ALT, (0-31) 11 U/L 09/26/24 Assessment Nutrition recommendation: RD nutrition education Focused findings Nutrition-focused findings: abd distension/bloating, abdominal pain and nausea Diagnosis Nutrition problem #1: inadequate protein energy and other (Altered GI function) As related to (etiology) #1: altered metabolism nutri, aversion to food/beverage and unsure how to apply info As evidenced by (sign/symptom) #1: knowledge deficit of diet and nausea (and other GI distress) Monitoring/Goals Nutrition problem monitoring: total energy intake, level of knowledge/skill, total PRO intake and oral fluids Nutrition goal/outcome: list 3 high fiber foods Outcome progress: verbalized understanding Learning/Education Readiness to learn: excellent Stages of change: action Educational materials provided: Yes (MONASH and gluten free resources should they be needed) Follow up Follow-up frequency: monthly Time Outcome assessment time: 60 minutes COUNT INCLUDES THE [facility] Medical History Hirsutism UTI (urinary tract infection) FH: breast cancer in first degree relative Tension headache Anxiety Lymphadenopathy Depression with anxiety Opioid abuse, in remission Heartburn Vulvar dermatitis No known health problems Surgical History History of foot surgery Family History Father ADHD Bipolar disorder Mother H/O: manic depressive disorder Anxiety Breast cancer Cervical cancer HTN (hypertension) Brother No problems noted. Sister No problems noted. Maternal Grandfather Stomach cancer Colon cancer High cholesterol Stroke Maternal Grandmother No problems noted. Paternal Grandmother Brain cancer Lung cancer Obese Paternal Grandfather No problems noted. Maternal Uncle Skin cancer Brother No problems noted. Sister No problems noted. Daughter No problems noted. Social History Alcohol intake: never Patient Tobacco Use Status: Never used Tobacco e-Cigarette/Vaping Use: Never Used service: No Current occupational status: employed Current occupation: [employer] Gender identity: Female Cognitive needs: No Hearing needs: No Vision needs: No Female Reproductive History Menstrual Age of Menarche: 11 Review of Systems GI Reports nausea Telehealth Telehealth Telehealth Platform: Other (please specify) ([facility] [place]) Location of provider rendering services: practice address Location of patient: address on file Patient Identification confirmed using: Name, : Yes Telehealth method: video Patient verbally consented to treatment: Yes Minutes spent on Phone/Video with Pt.: 60 Assessment & Plan Assessment & Plan (1) Abdominal discomfort: Code(s): R10.9 - Unspecified abdominal pain Category: Medical Plan: Resume gluten intake for next 7-10 days and get blood work done thereafter Schedule U/S Decrease fiber intake and monitor GI symptoms (temporary decrease for now) (2) Obesity, morbid, BMI 40.0-49.9: Code(s): E66.01 - Morbid (severe) obesity due to excess calories Category: Medical Plan: Increase protein and hydration Consider beginning to explore resources for strength training in your area Plan Resume gluten intake for next 7-10 days and get blood work done thereafter Schedule U/S Decrease fiber intake and monitor GI symptoms (temporary decrease for now) Increase protein and hydration Consider beginning to explore resources for strength training in your area Email RD to scheduled follow up after U/S scheduled Coding Level of Care Code Nutr Indiv Intake (05978) Diagnoses Abdominal discomfort R10.9 Obesity, morbid, BMI 40.0-49.9 E66.01
== END 2025-02-17 11:54 | disposition home or self-care (01) ==
LOC: HO.HMCCN 10:46
PROVIDERS: PCP Nurse Practitioner Family; Visit Provider Dietitian, Registered
DX: R10.9 Unspecified abdominal pain (principal); E66.01 Morbid (severe) obesity due to excess calories

== ENCOUNTER → 2025-02-17 10:46 | Outpatient (BNVA) | payer OTHER, SELFPAY | PROVIDERS: PCP Nurse Practitioner Family; Visit Provider Dietitian, Registered | DX: E66.01 Morbid (severe) obesity due to excess calories (principal); R10.9 Unspecified abdominal pain | CPT/HCPCS: 97802 ==